=== PATIENT | female | born 1935 | race Caucasian/White ===

== ENCOUNTER 2017-11-15 09:33 | Emergency (ER) | payer MEDICARE, MEDICAID ==
[~2017-11-15] VITALS: Ht 149.9 cm; Wt 49.0 kg
[~2017-11-15 09:33] MED LIST: ACET-1467 PO; AMLO10TA2 PO; FENO48TA5 PO; FLUT1DIS27 PO; MELO-107 PO
--- NOTE | 2017-11-15 10:10 | NUR ---
Flu swab collected and sent to LAB.
[2017-11-15] MEDS ORDERED: ALBUTEROL SULFATE 2.5 MG/3 ML NEBU ONE (10:14)
[2017-11-15] MEDS ORDERED: IPRATROPIUM BROMIDE 0.5 MG/2.5 ML NEBU ONE (10:14)
[2017-11-15] MEDS ORDERED: ALBUTEROL SULFATE 2.5 MG/ 0.5 ML NEBU NEB ONE (10:15)
[2017-11-15] MEDS ORDERED: IPRATROPIUM BROMIDE 0.5 MG/2.5 ML NEBU NEB ONE (10:15)
[2017-11-15 10:21] LABS: BASOPHILS # (AUTO) 0.1 K/uL (0.0-8.0); BASOPHILS % (AUTO) 0.7 % (0.0-2.0); EOSINOPHILS # (AUTO) 0.1 K/uL (0.0-0.7); EOSINOPHILS % (AUTO) 1.7 % (0.0-7.0); HEMATOCRIT 39.1 % (31.2-41.9); HEMOGLOBIN 13.1 g/dL (10.9-14.3); LYMPHOCYTES # (AUTO) 2.1 K/uL (20.0-40.0); LYMPHOCYTES % (AUTO) 26.7 % (20.5-51.5); MEAN CORPUSCULAR HEMOGLOBIN 28.6 uug (24.7-32.8); MEAN CORPUSCULAR HGB CONC 33 g/dL (32.3-35.6); MEAN CORPUSCULAR VOLUME 85.9 fL (75.5-95.3); MONOCYTES # (AUTO) 0.5 K/uL (2.0-10.0); MONOCYTES % (AUTO) 6.9 % (0.0-11.0); NEUTROPHILS # (AUTO) 5.1 K/uL (1.8-8.9); PLATELET COUNT (AUTO) 323 K/uL (179-408); RED BLOOD CELL COUNT(AUTO) 4.56 MIL/uL (3.63-4.92); WHITE BLOOD COUNT (AUTO) 7.9 K/uL (3.8-11.8)
[2017-11-15 10:22] LABS: CARBON DIOXIDE 25 mmol/L (21-32); CHLORIDE 105 mmol/L (98-107); CREATININE 1.2 mg/dL (0.6-1.3); GLUCOSE 92 mg/dL (74-106); POTASSIUM 3.8 mmol/L (3.5-5.1); UREA NITROGEN, BLOOD 18 mg/dL (7-18)
[2017-11-15 10:28] LABS: ALANINE AMINOTRANSFERASE 28 U/L (14-59); ALKALINE PHOSPHATASE 72 U/L (50-136); ASPARTATE AMINOTRANSFERASE 20 U/L (15-37); BILIRUBIN,TOTAL 0.5 mg/dL (0.2-1.0); CREATINE KINASE, TOTAL 113 U/L (26-192); TOTAL PROTEIN, SERUM 7.3 g/dL (6.4-8.2)
[2017-11-15] MEDS ORDERED: IV NORMAL SALINE 500 ML IV ONE (10:45)
--- NOTE | 2017-11-15 10:45 | NUR ---
Pt resting in bed, no C/O SOB, pain. Son at the bedside.
[2017-11-15 12:23] VITALS: BP 129/72
--- NOTE | 2017-11-15 12:25 | NUR ---
Patient discharged to home in stable conditon. Written and verbal after care instructions given. Patient verbalizes understanding of instructions.
--- NOTE | 2017-11-15 12:25 | NUR ---
IV removed. Catheter intact and site benign. Pressure and 4x4 gauze applied to site. No bleeding noted.
== END 2017-11-15 12:25 | disposition home or self-care (01) ==
LOC: ER 09:33
DX: R53.1 Weakness (principal); R19.7 Diarrhea, unspecified; I10 Essential (primary) hypertension; I25.10 Atherosclerotic heart disease of native coronary artery without angina pectoris; Z88.0 Allergy status to penicillin; Z79.899 Other long term (current) drug therapy
CPT/HCPCS: 36415; 70030-TC; 85025; 85610; 87400; 93005; A4663; J3590; J7040

== ENCOUNTER 2017-11-20 09:42 | Emergency (ER) | payer MEDICARE, MEDICAID ==
[~2017-11-20] VITALS: Ht 149.9 cm; Wt 49.0 kg
[2017-11-20] MEDS ORDERED: ALBUTEROL SULFATE 2.5 MG/3 ML NEBU NEB ONE (10:15)
[2017-11-20] MEDS ORDERED: IPRATROPIUM BROMIDE 0.5 MG/2.5 ML NEBU NEB ONE (10:15)
--- NOTE | 2017-11-20 10:18 | NUR ---
Patient was seen by dr brasher for c/o cough and related symptoms. Flu swab sent to lab. RT at bedside for tx. patient is awake and alert in no distress.
[2017-11-20 10:46] LABS: BASOPHILS # (AUTO) 0.1 K/uL (0.0-8.0); BASOPHILS % (AUTO) 0.8 % (0.0-2.0); EOSINOPHILS # (AUTO) 0.1 K/uL (0.0-0.7); EOSINOPHILS % (AUTO) 1.4 % (0.0-7.0); HEMATOCRIT 37.1 % (31.2-41.9); HEMOGLOBIN 12.4 g/dL (10.9-14.3); LYMPHOCYTES # (AUTO) 2.6 K/uL (20.0-40.0); LYMPHOCYTES % (AUTO) 31.7 % (20.5-51.5); MEAN CORPUSCULAR HEMOGLOBIN 28.8 uug (24.7-32.8); MEAN CORPUSCULAR HGB CONC 33 g/dL (32.3-35.6); MEAN CORPUSCULAR VOLUME 86.3 fL (75.5-95.3); MONOCYTES # (AUTO) 0.6 K/uL (2.0-10.0); MONOCYTES % (AUTO) 7.6 % (0.0-11.0); NEUTROPHILS # (AUTO) 4.8 K/uL (1.8-8.9); NEUTROPHILS % (AUTO) 58.5 % (38.5-71.5); PLATELET COUNT (AUTO) 319 K/uL (179-408); WHITE BLOOD COUNT (AUTO) 8.2 K/uL (3.8-11.8)
--- NOTE | 2017-11-20 10:52 | NUR ---
DC, RX AND FOLLOW UP INSTRUCTIONS GIVEN AND EXPLAINED TO PATIENT WHO STATES SHE UNDERSTANDS ALL INSTRUCTIONS.
== END 2017-11-20 10:54 | disposition home or self-care (01) ==
LOC: ER 09:44
DX: J06.9 Acute upper respiratory infection, unspecified (principal); I10 Essential (primary) hypertension; I25.10 Atherosclerotic heart disease of native coronary artery without angina pectoris; Z88.0 Allergy status to penicillin; Z79.51 Long term (current) use of inhaled steroids; Z79.899 Other long term (current) drug therapy; Z79.891 Long term (current) use of opiate analgesic
CPT/HCPCS: 36415; 71045; 85025; 87400; A4663

== ENCOUNTER 2018-03-21 19:44 | Inpatient (IN) | payer MEDICARE, MEDICAID ==
[~2018-03-21] VITALS: Ht 165.1 cm; Wt 55.3 kg
--- NOTE | 2018-03-21 20:20 | NUR ---
CHAZ FUENTES at bedside for patient evaluation.
[2018-03-21] MEDS ORDERED: METOCLOPRAMIDE HCL 10 MG/2 ML VIAL ONE (20:44)
[2018-03-21] MEDS ORDERED: KETOROLAC TROMETHAMINE 15 MG INJ ONE (20:44)
[2018-03-21] MEDS ORDERED: IV NORMAL SALINE 1000 ML BAG IV ONE (20:45)
[2018-03-21] MEDS ORDERED: METOCLOPRAMIDE HCL 10 MG/2 ML VIAL IV ONE (20:45)
[2018-03-21] MEDS ORDERED: KETOROLAC TROMETHAMINE 15 MG INJ IV ONE (20:45)
--- NOTE | 2018-03-21 20:51 | NUR ---
Patient taken to CT at this time.
[2018-03-21 20:56] LABS: BASOPHILS # (AUTO) 0.1 K/uL (0.0-8.0); BASOPHILS % (AUTO) 0.4 % (0.0-2.0); EOSINOPHILS # (AUTO) 0.2 K/uL (0.0-0.7); EOSINOPHILS % (AUTO) 1.1 % (0.0-7.0); HEMATOCRIT 41.8 % (31.2-41.9); HEMOGLOBIN 13.8 g/dL (10.9-14.3); LYMPHOCYTES # (AUTO) 1.9 K/uL (20.0-40.0); LYMPHOCYTES % (AUTO) 12.4 % (20.5-51.5); MEAN CORPUSCULAR HEMOGLOBIN 29.2 uug (24.7-32.8); MEAN CORPUSCULAR HGB CONC 33 g/dL (32.3-35.6); MEAN CORPUSCULAR VOLUME 88.2 fL (75.5-95.3); NEUTROPHILS # (AUTO) 11.9 K/uL (1.8-8.9); NEUTROPHILS % (AUTO) 79.1 % (38.5-71.5); PLATELET COUNT (AUTO) 306 K/uL (179-408); RED BLOOD CELL COUNT(AUTO) 4.74 MIL/uL (3.63-4.92); WHITE BLOOD COUNT (AUTO) 15.1 K/uL (3.8-11.8)
--- NOTE | 2018-03-21 21:00 | NUR ---
Patient does not rember all Rx taking at home. Son will bring medication bottle as soon as possible to be reconciled
[2018-03-21 21:07] LABS: *BLOOD, URINE NEGATIVE (NEGATIVE); *CLARITY,URINE CLOUDY (CLEAR); *COLOR,URINE RED (YELLOW); *KETONES,URINE 1+ (NEGATIVE); *PROTEIN,URINE 2+ (NEGATIVE); LEUKOCYTE ESTERASE ,URINE NEGATIVE (NEGATIVE); NITRITE, URINE POSITIVE (NEGATIVE); UGLUCOSE TRACE (NEGATIVE)
--- NOTE | 2018-03-21 21:07 | NUR ---
Patient back from CT at this time. no acute distress noted. VSS
[2018-03-21 21:13] LABS: *BILIRUBIN,URIN 2+ (NEGATIVE)
[2018-03-21 21:16] LABS: CARBON DIOXIDE 26 mmol/L (21-32); CHLORIDE 103 mmol/L (98-107); CREATININE 1.9 mg/dL (0.6-1.3); GLUCOSE 140 mg/dL (74-106); POTASSIUM 4.6 mmol/L (3.5-5.1); UREA NITROGEN, BLOOD 47 mg/dL (7-18)
--- NOTE | 2018-03-21 21:24 | NUR ---
patient remains in bed, no acute distress noted. vss
[2018-03-21 21:30] LABS: ALANINE AMINOTRANSFERASE 33 U/L (14-59); ALKALINE PHOSPHATASE 97 U/L (50-136); ASPARTATE AMINOTRANSFERASE 23 U/L (15-37); BILIRUBIN,DIRECT 0.1 mg/dL (0.0-0.2); BILIRUBIN,TOTAL 0.6 mg/dL (0.2-1.0); LIPASE 497 U/L (73-393); TOTAL PROTEIN, SERUM 7.5 g/dL (6.4-8.2)
[2018-03-21 22:04] LABS: BACTERIA,URINE NONE SEEN /HPF (NONE SEEN); RBC,URINE 0-3 /HPF (0-3); SQUAMOUS EPITHELIAL CELL,UR FEW /HPF (NONE SEEN); WBC,URINE NONE SEEN /HPF (0-3)
[2018-03-21] MEDS ORDERED: ATOR10TA PO (22:40)
--- NOTE | 2018-03-21 22:41 | NUR ---
CHAZ MD on phone with [facility] at this time.
[2018-03-21] MEDS ORDERED: METRONIDAZOLE 500 MG/NS 100 ML PIGGYBACK IV ONE (22:45)
[2018-03-21] MEDS ORDERED: LEVOFLOXACIN 500 MG/D5W 100ML PIGGYBACK IV ONE (22:45)
[2018-03-21] MEDS ORDERED: LEVOFLOXACIN 500 MG/D5W 100 ML ONE (23:07)
[2018-03-21] MEDS ORDERED: ENAL20TA PO (23:16)
[2018-03-21] MEDS ORDERED: METRONIDAZOLE 500 MG/NS 100ML 100 ML IV ONE (23:40)
[2018-03-21] MEDS ORDERED: MORPHINE SULFATE 4 MG/1 ML DISP.SYRIN ONE (23:40)
[2018-03-21] MEDS ORDERED: MORPHINE SULFATE 4 MG/1 ML DISP.SYRIN IV ONE (23:45)
--- NOTE | 2018-03-22 00:02 | NUR ---
1st call to [facility] Panel call.
--- NOTE | 2018-03-22 00:32 | NUR ---
2nd attempt for [facility] panel call
--- NOTE | 2018-03-22 00:48 | NUR ---
Pt. admitted to Telemetry , under care of Yina Matamoros. Dx: Diverticulitis. Belongs List completed. Sons contact infromation: [phone]
--- NOTE | 2018-03-22 00:51 | NUR ---
Report given to Adair DEE on Telemetry
[2018-03-22] MEDS ORDERED: IV NS 1000 ML 1,000 ML IV PRN (00:53)
[2018-03-22] MEDS ORDERED: ONDANSETRON 4 MG/2 ML VIAL IV PRN (01:00)
[2018-03-22] MEDS ORDERED: ACETAMINOPHEN 325 MG TABLET PO PRN (01:00)
[2018-03-22] MEDS ORDERED: MORPHINE SULFATE 2 MG/1 ML DISP.SYRIN IV PRN ×2 (01:00→08:00)
--- NOTE | 2018-03-22 01:15 | NUR ---
RECEIVED PT REPORT FROM LUIZ YEUNG IN THE ER. PT ARRIVED ON FLOOR VIA W/C AT 0115. PT IS AMBULATORY. PT STABLE, NO COMPLAINTS AT THIS TIME. PT'S VSS 122/54, HR 82, RR 18, SPO2 97%, AFEBRILE 98.2. PT HAS AN IV ACCESS 20 G LEFT AC. PT IS NSR ON TELE MONITORING. ORIENTED TO USE OF CALL LIGHT AND UNIT. CALL LIGHT WITHIN USE, PT INSTRUCTED TO UTILIZE CALL LIGHT WHEN NEEDING TO GET OUT OF BED. PT VERBALIZES UNDERSTANDING.
[2018-03-22 01:37] VITALS: BP 122/54
[2018-03-22] MEDS ORDERED: METRONIDAZOLE 500 MG/NS 100ML 100 ML IV ONE (02:38)
[2018-03-22 04:19] VITALS: BP 118/49
--- NOTE | 2018-03-22 05:00 | NUR ---
PT SLEEPING IN BED. DENIES ANY PAIN, C/P, SOB, N/V. PT WAS ASSISTED TO THE RESTROOM AT 0400 BY ROSY MUÑOZ. PT IS NSR ON TELE MONITORING. WILL CONTINUE TO MONITOR. CALL LIGHT WITHIN REACH.
[2018-03-22] MEDS: METRONIDAZOLE 500 MG/NS 100ML 500 MG in PREMIXED 1 EACH IV SCH ×3 (05:36→22:02)
--- NOTE | 2018-03-22 06:33 | NUR ---
PT IS AWAKE, RESTING IN BED. NSR ON TELE MONITORING. PT DENIES PAIN, C/P, SOB, N/V. PT IS TOLERATING IVF WELL. BED IN LOW & LOCKED POSITION WITH SIDERAILS X2 UP. CALL LIGHT WITHIN REACH. SCDS IN PLACE.
[2018-03-22 06:52] LABS: MAGNESIUM 2.1 mg/dL (1.8-2.4); PHOSPHOROUS 3.9 mg/dL (2.5-4.9)
[2018-03-22 07:03] LABS: THYROID STIMULATING HORMONE 2.854 mIU/mL (0.358-3.740)
--- NOTE | 2018-03-22 08:10 | NUR ---
AWAKE ALERT AND ORIENTED X3 NO SIGNS OF DISTRESS BUT BEARABLE ABDOMINAL PAIN /, KEPT NPO TILL FURTHER ORDERS. IVF AT 75 ML/HR
[2018-03-22] MEDS: PANTOPRAZOLE SODIUM 40 MG VIAL IV SCH (08:45)
[2018-03-22] MEDS ORDERED: LEVOFLOXACIN 500 MG/D5W 100ML PIGGYBACK IV ONE (09:00)
[2018-03-22 11:29] VITALS: BP 115/77
[2018-03-22] MEDS ORDERED: ATOR20TA PO (11:38)
[2018-03-22] MEDS ORDERED: ACETAMINOPHEN 650 MG SUPP.RECT RC PRN (11:45)
--- NOTE | 2018-03-22 11:45 | NUR ---
AWAITING MD FOR PLAN OF CARE. TO XRAY FOR CT CHEST VIA W/C. REMAINS NPO, NO N/V
[2018-03-22 12:10] LABS: *BILIRUBIN,URIN NEGATIVE (NEGATIVE); *BLOOD, URINE Trace-lysed (NEGATIVE); *CLARITY,URINE CLEAR (CLEAR); *COLOR,URINE YELLOW (YELLOW); *KETONES,URINE NEGATIVE (NEGATIVE); *PROTEIN,URINE NEGATIVE (NEGATIVE); *UROBILINOGEN,URINE 0.2 E.U./dl (NORMAL); LEUKOCYTE ESTERASE ,URINE 1+ (NEGATIVE); NITRITE, URINE NEGATIVE (NEGATIVE); UGLUCOSE NEGATIVE (NEGATIVE)
[2018-03-22 12:17] LABS: *CREATININE,URINE 115.9 mg/dL (30-125); *URINE TOTAL PROTEIN RANDOM 20.9 mg/dL (<150/24HR)
[2018-03-22 12:23] LABS: BACTERIA,URINE FEW /HPF (NONE SEEN); RBC,URINE 0-3 /HPF (0-3); SQUAMOUS EPITHELIAL CELL,UR FEW /HPF (NONE SEEN); WBC,URINE 0-3 /HPF (0-3)
[2018-03-22] MEDS: IV D5 1/2 NS 1000 ML 1,000 ML IV PRN (12:24)
--- NOTE | 2018-03-22 14:40 | NUR ---
SEEN BY DR CRUZ AND SPOKE WITH FAMILY REGARDING PLAN O CARE, SEE NOTES
[2018-03-22 15:24] VITALS: BP 112/42
--- NOTE | 2018-03-22 18:59 | NUR ---
CONTINUE NPO STATUS AND IV ANTIBIOTICS, NO REACTION NOTED
[2018-03-22 19:00] VITALS: BP 115/43
--- NOTE | 2018-03-22 19:20 | NUR ---
RECEIVED SHIFT REPORT FROM LUIZ MI. PT IN BED RESTING WITH NO COMPLAINTS AT THIS TIME. PT IS NPO WITH IVF D5 1/2 NS INFUSING AT 70 CC/HR. CALL LIGHT WITHIN REACH WITH BED IN LOCKED, LOW POSITION WITH SIDERAILS X2 UP.
[2018-03-22] MEDS: LEVOFLOXACIN/D5W 250 MG in PREMIX 1 EA IV SCH (20:20)
[2018-03-22] MEDS ORDERED: LEVOFLOXACIN 500 MG/D5W 500 MG in PREMIXED 1 EACH IV SCH (21:00)
[2018-03-23 04:00] VITALS: BP 124/44
[2018-03-23] MEDS: MORPHINE SULFATE 2 MG/1 ML DISP.SYRIN IV PRN ×2 (04:26→21:27)
[2018-03-23] MEDS: IV D5 1/2 NS 1000 ML 1,000 ML IV PRN ×2 (04:26→20:09)
[2018-03-23] MEDS: METRONIDAZOLE 500 MG/NS 100ML 500 MG in PREMIXED 1 EACH IV SCH ×3 (05:25→21:10)
[2018-03-23 06:09] LABS: BASOPHILS % (AUTO) 0.3 % (0.0-2.0); EOSINOPHILS # (AUTO) 0.1 K/uL (0.0-0.7); EOSINOPHILS % (AUTO) 1.1 % (0.0-7.0); HEMATOCRIT 30.1 % (31.2-41.9); HEMOGLOBIN 10.1 g/dL (10.9-14.3); LYMPHOCYTES # (AUTO) 1.8 K/uL (20.0-40.0); LYMPHOCYTES % (AUTO) 25.2 % (20.5-51.5); MEAN CORPUSCULAR HEMOGLOBIN 29.7 uug (24.7-32.8); MEAN CORPUSCULAR HGB CONC 34 g/dL (32.3-35.6); MONOCYTES # (AUTO) 0.5 K/uL (2.0-10.0); MONOCYTES % (AUTO) 7.3 % (0.0-11.0); NEUTROPHILS # (AUTO) 4.7 K/uL (1.8-8.9); NEUTROPHILS % (AUTO) 66.1 % (38.5-71.5); PLATELET COUNT (AUTO) 183 K/uL (179-408); RED BLOOD CELL COUNT(AUTO) 3.42 MIL/uL (3.63-4.92); WHITE BLOOD COUNT (AUTO) 7.2 K/uL (3.8-11.8)
[2018-03-23 06:46] LABS: ALANINE AMINOTRANSFERASE 17 U/L (14-59); ALKALINE PHOSPHATASE 62 U/L (50-136); ASPARTATE AMINOTRANSFERASE 16 U/L (15-37); BILIRUBIN,TOTAL 0.8 mg/dL (0.2-1.0); CARBON DIOXIDE 25 mmol/L (21-32); CHLORIDE 108 mmol/L (98-107); CHOLESTEROL 146 mg/dL (<200); CREATININE 1.4 mg/dL (0.6-1.3); GLUCOSE 107 mg/dL (74-106); HDL CHOLESTEROL 54 mg/dL (40-60); PHOSPHOROUS 3.5 mg/dL (2.5-4.9); POTASSIUM 4.5 mmol/L (3.5-5.1); TOTAL PROTEIN, SERUM 5.5 g/dL (6.4-8.2); TRIGLYCERIDES 97 MG/DL (30-150); UREA NITROGEN, BLOOD 28 mg/dL (7-18)
[2018-03-23 07:01] LABS: LIPASE 229 U/L (73-393)
--- NOTE | 2018-03-23 08:00 | NUR ---
AWAKE ALERT RESTING IN BED WITH ON AND OFF BEARABLE ABDOMINAL PAIN. AWAITING MD TO DISCUSS FURTHER PLAN OF CARE. KEPT NPO TILL FURTHER ORDERS
[2018-03-23] MEDS: NICOTINE 21 MG/24HR PATCH TD SCH (08:35)
[2018-03-23] MEDS: PANTOPRAZOLE SODIUM 40 MG VIAL IV SCH (08:35)
[2018-03-23 11:09] VITALS: BP 122/40
--- NOTE | 2018-03-23 12:00 | NUR ---
SEEN BY GI WITH ORDER FOR EGD AND COLONOSCOPY IN AM, SPOKE WITH PATIENT AND DAUGHTER. CONSENT TO BE SIGNED BY DAUGHTER
[2018-03-23] MEDS ORDERED: ALBUTEROL SULFATE 2.5 MG/3 ML NEBU NEB PRN (12:15)
[2018-03-23 15:31] VITALS: BP 127/43
--- NOTE | 2018-03-23 16:04 | NUR ---
RESTING COMFORTABLY WITH SIGNS OF ACUTE PAIN. CONTINUE TO BE UP AND ABOUT INDEPENDENTLY TO THE BATHROOM. NOTED STOOL WITH SMALL PARTICLES OF FORMED BROWN STOOL
--- NOTE | 2018-03-23 19:35 | NUR ---
Received patient awake, alert, no sob no chest patient noted, patient cont on npo, cont to monitor if BM clean. call light within reach. cont to monitor.
[2018-03-23 20:00] VITALS: BP 124/40
[2018-03-23] MEDS: LEVOFLOXACIN/D5W 250 MG in PREMIX 1 EA IV SCH (20:09)
[2018-03-24] MEDS: MORPHINE SULFATE 2 MG/1 ML DISP.SYRIN IV PRN ×2 (01:41→10:56)
[2018-03-24 04:18] VITALS: BP 126/46
[2018-03-24] MEDS: METRONIDAZOLE 500 MG/NS 100ML 500 MG in PREMIXED 1 EACH IV SCH (05:40)
--- NOTE | 2018-03-24 05:58 | NUR ---
PATIENT AWAKE SLEPT FAIRLY, CONT ON PAIN MANAGEMENT. CONT NPO. FLEETS ENEMA GIVEN BM CLEAR WATER COLOR, CONT TO REMIND PATIENT THAT SHE IS NPO. NO SOB NO CHEST PAIN NOTED, CALL LIGHT WITHIN REACH.
[2018-03-24] MEDS ORDERED: FLEET ENEMA 133 ML BOTTLE RC SCH (06:30)
--- NOTE | 2018-03-24 07:46 | NUR ---
patient went for egd/colonoscopy at this time. stable condition, no s/s of distress. iv disconnected. alert/oriented. consent signed for surgery, pre-op checklist completed per power and recovery shift engineer nurse.
[2018-03-24] MEDS: PANTOPRAZOLE SODIUM 40 MG VIAL IV SCH ×2 (07:59→11:29)
--- NOTE | 2018-03-24 07:59 | NUR ---
non-administration medication: protonix 40mg iv - patient left for procedure at 0742.
[2018-03-24] MEDS ORDERED: PROPOFOL 200 MG/20 ML BOTTLE ONE (09:35)
[2018-03-24] MEDS ORDERED: LIDOCAINE HCL 2% 20 ML VIAL MC ONE (09:50)
[2018-03-24] MEDS ORDERED: PROPOFOL 200 MG/20 ML BOTTLE IV ONE (09:50)
[2018-03-24] MEDS ORDERED: IV NORMAL SALINE 1000 ML BAG IV ONE (09:50)
[2018-03-24] MEDS ORDERED: SIMETHICONE 40 MG/0.6 ML 30 ML BOTTLE MC ONE (09:50)
--- NOTE | 2018-03-24 10:50 | NUR ---
Patient arrived onto med-surg floor at this time from procedure. vital signs taken and all vitals WNL except for diastolic BP of 38. MD notified. complained of abdominal pain 06/08. Asked MD if OK to administer morphine 2mg IV if diastolic BP is low. MD said it's okay. but also ordered to increase IVF to 90 cc/hr.
[2018-03-24 10:53] VITALS: BP 116/38
[2018-03-24] MEDS: NICOTINE 21 MG/24HR PATCH TD SCH (11:12)
[2018-03-24] MEDS: METRONIDAZOLE 500 MG TABLET PO SCH ×2 (13:12→22:30)
[2018-03-24 13:33] LABS: BASOPHILS % (AUTO) 0.2 % (0.0-2.0); EOSINOPHILS % (AUTO) 0.3 % (0.0-7.0); HEMOGLOBIN 10.6 g/dL (10.9-14.3); LYMPHOCYTES # (AUTO) 1.3 K/uL (20.0-40.0); LYMPHOCYTES % (AUTO) 12.9 % (20.5-51.5); MEAN CORPUSCULAR HEMOGLOBIN 29.5 uug (24.7-32.8); MEAN CORPUSCULAR HGB CONC 33 g/dL (32.3-35.6); MEAN CORPUSCULAR VOLUME 88.9 fL (75.5-95.3); MONOCYTES # (AUTO) 0.5 K/uL (2.0-10.0); MONOCYTES % (AUTO) 4.7 % (0.0-11.0); NEUTROPHILS # (AUTO) 7.9 K/uL (1.8-8.9); NEUTROPHILS % (AUTO) 81.9 % (38.5-71.5); PLATELET COUNT (AUTO) 201 K/uL (179-408); WHITE BLOOD COUNT (AUTO) 9.7 K/uL (3.8-11.8)
[2018-03-24 13:38] LABS: CARBON DIOXIDE 21 mmol/L (21-32); CHLORIDE 108 mmol/L (98-107); CREATININE 1.3 mg/dL (0.6-1.3); GLUCOSE 158 mg/dL (74-106); POTASSIUM 3.4 mmol/L (3.5-5.1); UREA NITROGEN, BLOOD 17 mg/dL (7-18)
[2018-03-24 15:45] VITALS: BP 125/48
[2018-03-24] MEDS: IV D5 1/2 NS 1000 ML 1,000 ML IV PRN (16:30)
[2018-03-24] MEDS ORDERED: POTASSIUM CHLORIDE 20 MEQ TAB.PRT.SR PO ONE (18:00)
--- NOTE | 2018-03-24 19:45 | NUR ---
RECEIVED PATIENT IN BED, ASLEEP, NO SOB NO CHEST PAIN NOTED, NO COMPLAIN OF PAIN AT THIS TIME. ASSISTED WITH TOILETING, CALL LIGHT WITHIN REACH.
[2018-03-24 20:37] VITALS: BP 113/47
[2018-03-24] MEDS ORDERED: LEVOFLOXACIN 250 MG TABLET PO SCH (21:00)
[2018-03-25] MEDS: MORPHINE SULFATE 2 MG/1 ML DISP.SYRIN IV PRN (01:26)
--- NOTE | 2018-03-25 01:26 | NUR ---
PATIENT REQUEST FOR PAIN MEDICATIONS, PATIENT RESTLESS, DANGLE FEET FROM THE BED DUE TO SEVERE PAIN, MEDICATED FOR PAIN, NO ADVERSE REACTION NOTED. CONT TO MONITOR.
[2018-03-25 04:00] VITALS: BP 128/48
--- NOTE | 2018-03-25 05:30 | NUR ---
PATIENT MOST OF THE NIGHT, PAIN MEDICATION EFFECTIVE AT THIS TIME, NO SOB NO CHEST PAIN, CALL LIGHT WITHIN REACH, VOIDING FREELY CONTINUE TO MONITOR.
[2018-03-25] MEDS: METRONIDAZOLE 500 MG TABLET PO SCH (06:12)
[2018-03-25] MEDS ORDERED: PANTOPRAZOLE SODIUM 40 MG TABLET.DR PO SCH (07:00)
[2018-03-25 07:12] LABS: BASOPHILS % (AUTO) 0.3 % (0.0-2.0); EOSINOPHILS # (AUTO) 0.1 K/uL (0.0-0.7); EOSINOPHILS % (AUTO) 1.2 % (0.0-7.0); HEMATOCRIT 28.9 % (31.2-41.9); HEMOGLOBIN 9.8 g/dL (10.9-14.3); LYMPHOCYTES % (AUTO) 24.7 % (20.5-51.5); MEAN CORPUSCULAR HGB CONC 34 g/dL (32.3-35.6); MEAN CORPUSCULAR VOLUME 88.3 fL (75.5-95.3); MONOCYTES # (AUTO) 0.7 K/uL (2.0-10.0); MONOCYTES % (AUTO) 8.5 % (0.0-11.0); NEUTROPHILS # (AUTO) 5.3 K/uL (1.8-8.9); NEUTROPHILS % (AUTO) 65.3 % (38.5-71.5); PLATELET COUNT (AUTO) 195 K/uL (179-408); RED BLOOD CELL COUNT(AUTO) 3.27 MIL/uL (3.63-4.92); WHITE BLOOD COUNT (AUTO) 8.2 K/uL (3.8-11.8)
[2018-03-25 07:29] LABS: ALANINE AMINOTRANSFERASE 19 U/L (14-59); ALKALINE PHOSPHATASE 56 U/L (50-136); ASPARTATE AMINOTRANSFERASE 15 U/L (15-37); BILIRUBIN,TOTAL 0.5 mg/dL (0.2-1.0); CARBON DIOXIDE 21 mmol/L (21-32); CHLORIDE 113 mmol/L (98-107); CREATININE 1.3 mg/dL (0.6-1.3); GLUCOSE 94 mg/dL (74-106); MAGNESIUM 1.5 mg/dL (1.8-2.4); POTASSIUM 3.9 mmol/L (3.5-5.1); TOTAL PROTEIN, SERUM 5.2 g/dL (6.4-8.2); UREA NITROGEN, BLOOD 14 mg/dL (7-18)
--- NOTE | 2018-03-25 07:41 | NUR ---
patient resting comfortably in bed at this time. no s/s of distress. stable condition, possible d/c today. no complaints of pain at this time. will continue to monitor throughout shift. call light within reach. bed alarm on.
[2018-03-25] MEDS: NICOTINE 21 MG/24HR PATCH TD SCH (08:26)
[2018-03-25] MEDS ORDERED: MAGNESIUM OXIDE 400 MG TABLET PO ONE (09:30)
[2018-03-25 11:27] VITALS: BP 123/41
[2018-03-25] MEDS ORDERED: ATOR10TA PO (11:27)
[2018-03-25] MEDS ORDERED: NICO-672 TD (11:27)
[2018-03-25] MEDS ORDERED: AMLO5TAB4 PO (11:27)
[2018-03-25] MEDS ORDERED: METR500T4 PO (11:27)
[2018-03-25] MEDS ORDERED: LEVO250T2 PO (11:27)
[2018-03-25] MEDS ORDERED: PANT40TA2 PO (11:27)
--- NOTE | 2018-03-25 13:20 | NUR ---
patient discharged at this time. no s/s of distress. stable condition. vital signs stable. discharge instructions provided. notified patient and patient's family to follow-up with primary care physician within one-week of being discharged. id-band taken out, iv-access disconnected, prescriptions provided to patient. pharmacist called to speak with patient regarding new medications. discharge packet completed, signed by patient and copy made for patient. patient picked up by son, daughter, and and discharged safely from hospital premises.
== END 2018-03-25 13:20 | disposition home or self-care (01) | DRG 371 ==
LOC: ER 19:50 → TELE 03-22 00:45 → MED 03-22 11:55
PROVIDERS: ADMIT Nurse Practitioner Acute Care; ATTEND Internal Medicine
PROC: 0DBH8ZX Excision of Cecum, Via Natural or Artificial Opening Endoscopic, Diagnostic (ICD-10-PCS; 2018-03-24)
PROC: 0DB48ZX Excision of Esophagogastric Junction, Via Natural or Artificial Opening Endoscopic, Diagnostic (ICD-10-PCS; principal; 2018-03-24 08:30)
PROC: 0DBN8ZX Excision of Sigmoid Colon, Via Natural or Artificial Opening Endoscopic, Diagnostic (ICD-10-PCS; 2018-03-24 08:30)
DX: A04.9 Bacterial intestinal infection, unspecified (principal); N17.0 Acute kidney failure with tubular necrosis; K85.90 Acute pancreatitis without necrosis or infection, unspecified; K57.32 Diverticulitis of large intestine without perforation or abscess without bleeding; R01.1 Cardiac murmur, unspecified; I08.3 Combined rheumatic disorders of mitral, aortic and tricuspid valves; E78.5 Hyperlipidemia, unspecified; F17.210 Nicotine dependence, cigarettes, uncomplicated; Z90.722 Acquired absence of ovaries, bilateral; Z88.0 Allergy status to penicillin; M85.80 Other specified disorders of bone density and structure, unspecified site; H54.62 Unqualified visual loss, left eye, normal vision right eye; K80.20 Calculus of gallbladder without cholecystitis without obstruction; J43.2 Centrilobular emphysema; M41.9 Scoliosis, unspecified; I10 Essential (primary) hypertension; G89.29 Other chronic pain; M15.9 Polyosteoarthritis, unspecified; K86.9 Disease of pancreas, unspecified; Z79.899 Other long term (current) drug therapy; K63.5 Polyp of colon; I27.20 Pulmonary hypertension, unspecified; E27.8 Other specified disorders of adrenal gland; D64.9 Anemia, unspecified; R91.8 Other nonspecific abnormal finding of lung field; R73.9 Hyperglycemia, unspecified; K20.9 Esophagitis, unspecified; K44.9 Diaphragmatic hernia without obstruction or gangrene; D12.0 Benign neoplasm of cecum; I25.10 Atherosclerotic heart disease of native coronary artery without angina pectoris
CPT/HCPCS: 36415; 70030-TC; 71045; 71250; 82378; 83605; 83690; 83735; 84100; 84156; 84300; 84443; 85025; 85730; 86301; 87040; 87086; 93005; 93307; A4217; A4663; C9113; J1885; J1956; J2270; J2765; J3490; J7030

== ENCOUNTER 2018-03-30 13:45 | Inpatient (IN) | payer MEDICARE, MEDICAID ==
[~2018-03-30] VITALS: Ht 157.5 cm; Wt 50.8 kg
[~2018-03-30 13:45] MED LIST changes: -AMLO10TA2 PO; +AMLO5TAB4 PO; +ATOR10TA PO; -FENO48TA5 PO; +LEVO250T2 PO; -MELO-107 PO; +METR500T4 PO; +NICO-672 TD; +PANT40TA2 PO
[2018-03-30] MEDS ORDERED: ALBUTEROL SULFATE 2.5 MG/3 ML NEBU NEB ONE (14:15)
[2018-03-30] MEDS ORDERED: ALBUTEROL SULFATE 2.5 MG/ 0.5 ML NEBU ONE (14:15)
[2018-03-30] MEDS ORDERED: predniSONE 10 MG TABLET PO ONE (14:15)
[2018-03-30] MEDS ORDERED: IPRATROPIUM BROMIDE 0.5 MG/2.5 ML NEBU ONE (14:15)
[2018-03-30] MEDS ORDERED: IPRATROPIUM BROMIDE 0.5 MG/2.5 ML NEBU NEB ONE (14:15)
[2018-03-30] MEDS ORDERED: predniSONE 50 MG TABLET ONE (14:20)
[2018-03-30] MEDS ORDERED: predniSONE 10 MG TABLET ONE (14:20)
[2018-03-30] MEDS ORDERED: ALBU18HF2 IH (14:27)
--- NOTE | 2018-03-30 14:32 | NUR ---
HHN TX completed, lungs sounds clear bilat, no acute distress noted at this time.
--- NOTE | 2018-03-30 14:34 | NUR ---
DR SCOTT EVALUATED THE PT. PT IS IN ROOM #1A.
[2018-03-30 14:39] LABS: BASOPHILS % (AUTO) 0.5 % (0.0-2.0); EOSINOPHILS # (AUTO) 0.1 K/uL (0.0-0.7); EOSINOPHILS % (AUTO) 1.3 % (0.0-7.0); HEMATOCRIT 31.7 % (31.2-41.9); HEMOGLOBIN 10.6 g/dL (10.9-14.3); LYMPHOCYTES # (AUTO) 1.8 K/uL (20.0-40.0); LYMPHOCYTES % (AUTO) 21.3 % (20.5-51.5); MEAN CORPUSCULAR HEMOGLOBIN 29.2 uug (24.7-32.8); MEAN CORPUSCULAR HGB CONC 34 g/dL (32.3-35.6); MEAN CORPUSCULAR VOLUME 87.3 fL (75.5-95.3); MONOCYTES # (AUTO) 0.9 K/uL (2.0-10.0); MONOCYTES % (AUTO) 10.8 % (0.0-11.0); NEUTROPHILS # (AUTO) 5.5 K/uL (1.8-8.9); NEUTROPHILS % (AUTO) 66.1 % (38.5-71.5); PLATELET COUNT (AUTO) 238 K/uL (179-408); RED BLOOD CELL COUNT(AUTO) 3.62 MIL/uL (3.63-4.92); WHITE BLOOD COUNT (AUTO) 8.4 K/uL (3.8-11.8)
[2018-03-30 14:48] LABS: CARBON DIOXIDE 25 mmol/L (21-32); CHLORIDE 103 mmol/L (98-107); CREATININE 1.4 mg/dL (0.6-1.3); GLUCOSE 133 mg/dL (74-106); POTASSIUM 3.4 mmol/L (3.5-5.1); UREA NITROGEN, BLOOD 13 mg/dL (7-18)
[2018-03-30] MEDS ORDERED: ONDANSETRON 4 MG/2 ML VIAL IV PRN (15:30)
[2018-03-30] MEDS ORDERED: HYDROCODONE/APAP 5-325MG TABLET PO PRN (15:30)
[2018-03-30] MEDS ORDERED: IPRATROPIUM BROMIDE 0.5 MG/2.5 ML NEBU NEB PRN (15:30)
[2018-03-30] MEDS ORDERED: Z GUARD REMEDY PASTE 57 GM TUBE TOP PRN (15:30)
[2018-03-30] MEDS ORDERED: MAGNESIUM HYDROXIDE 30 ML LIQUID UDC PO PRN (15:30)
[2018-03-30] MEDS ORDERED: ALBUTEROL SULFATE 2.5 MG/ 0.5 ML NEBU NEB PRN (15:30)
[2018-03-30] MEDS ORDERED: FLUTICASONE/SALMETEROL 100/50 1 INH DISK.W.DEV INH SCH (15:45)
--- NOTE | 2018-03-30 17:00 | NUR ---
Received pt via pita accompanied by ER nurse.
[2018-03-30 17:10] VITALS: BP 146/58
--- NOTE | 2018-03-30 17:13 | NUR ---
PT WAS TRANSFERED TO ROOM #215. REPORT WAS GIVEN TO PERINATAL SOCIAL WORKER.
[2018-03-30] MEDS: ACETAMINOPHEN 325 MG TABLET PO PRN (17:24)
--- NOTE | 2018-03-30 17:35 | NUR ---
Pt's VS taken and noted temp at 100.1, Tylenol given. Pt is noted with a productive cough. O2 via NC at 3L and sating at 96%. Ice packs provided under each arm. Placed pt on tele monitor. Family members accompanied her, noted 3 young men with her. Pt refused to remove her pants by states her legs are clean and no skin issues. Also noted she is wearing 2 cloth knee braces. Pt stated she is tried and will remove her trouser later and replace them with hospital pants. Noted pt with no skin issues on her back, arms and chest/abdomen. Noted posterior wheezes
[2018-03-30] MEDS: AZITHROMYCIN IV 250 MG in IV DEXTROSE 5% 250 ML IV SCH (17:51)
--- NOTE | 2018-03-30 19:20 | NUR ---
Pt requested something to help her sleep. Informed HORIZONTAL DRILL OPERATOR and asked night baker nurse to follow up. Pt is resting at this time, sleeping upright in a high sanchez position
--- NOTE | 2018-03-30 19:20 | NUR ---
RECEIVED SHIFT REPORT FROM LUIZ SARGENT. PT IN BED SITTING HIGH MANTILLA'S, COMPLAINING OF BACK PAIN 04/08 CURRENTLY. NO SOB, C/P, N/V. BED IN LOW AND LOCKED POSITION WITH BILATERAL UPPER SIDERAILS UP. PT IS NSR ON TELE MONITORING. SKIN INTACT. WILL FOLLOW UP WITH CLINICAL NURSE EDUCATOR RE PT'S REQUEST FOR MEDICATION TO HELP HER SLEEP.
[2018-03-30 20:00] VITALS: BP 131/51
[2018-03-30] MEDS: ATORVASTATIN 10 MG TABLET PO SCH (20:41)
--- NOTE | 2018-03-30 23:40 | NUR ---
PT HAS NONPRODUCTIVE COUGH, C/O SOB. RR 18 WITH BREATHING COACHING, SPO2 97% ON O2 3 LPM VIA N/C. REQUESTED RT TO ADMINISTER BREATHING TREATMENT.
[2018-03-30 23:55] VITALS: BP 138/58
--- NOTE | 2018-03-31 01:34 | NUR ---
PT SLEEPING COMFORTABLY POST BREATHING TREATMENT. NNO FOR SLEEPING AID, BUT PT SLEEPING COMFORTABLY. PT REFUSED PAIN MEDICATION. WILL CONTINUE TO MONITOR.
[2018-03-31] MEDS: ACETAMINOPHEN/CODEINE 300-30 MG TABLET PO PRN ×2 (03:02→18:30)
[2018-03-31 04:00] VITALS: BP 134/52
[2018-03-31] MEDS: PANTOPRAZOLE SODIUM 40 MG TABLET.DR PO SCH (06:06)
[2018-03-31 06:36] LABS: BASOPHILS % (AUTO) 0.2 % (0.0-2.0); HEMATOCRIT 29.1 % (31.2-41.9); HEMOGLOBIN 9.9 g/dL (10.9-14.3); LYMPHOCYTES # (AUTO) 0.5 K/uL (20.0-40.0); LYMPHOCYTES % (AUTO) 8.4 % (20.5-51.5); MEAN CORPUSCULAR HEMOGLOBIN 29.7 uug (24.7-32.8); MEAN CORPUSCULAR HGB CONC 34 g/dL (32.3-35.6); MONOCYTES # (AUTO) 0.4 K/uL (2.0-10.0); MONOCYTES % (AUTO) 6.9 % (0.0-11.0); NEUTROPHILS # (AUTO) 5.2 K/uL (1.8-8.9); NEUTROPHILS % (AUTO) 84.5 % (38.5-71.5); PLATELET COUNT (AUTO) 230 K/uL (179-408); RED BLOOD CELL COUNT(AUTO) 3.34 MIL/uL (3.63-4.92); WHITE BLOOD COUNT (AUTO) 6.1 K/uL (3.8-11.8)
[2018-03-31 06:42] LABS: CARBON DIOXIDE 27 mmol/L (21-32); CHLORIDE 106 mmol/L (98-107); CHOLESTEROL 135 mg/dL (<200); CREATININE 1.3 mg/dL (0.6-1.3); GLUCOSE 127 mg/dL (74-106); HDL CHOLESTEROL 68 mg/dL (40-60); MAGNESIUM 1.9 mg/dL (1.8-2.4); PHOSPHOROUS 3.9 mg/dL (2.5-4.9); POTASSIUM 3.8 mmol/L (3.5-5.1); TRIGLYCERIDES 36 MG/DL (30-150); UREA NITROGEN, BLOOD 16 mg/dL (7-18)
[2018-03-31 06:58] LABS: *BILIRUBIN,URIN NEGATIVE (NEGATIVE); *BLOOD, URINE Trace-lysed (NEGATIVE); *CLARITY,URINE CLEAR (CLEAR); *COLOR,URINE YELLOW (YELLOW); *KETONES,URINE NEGATIVE (NEGATIVE); *PROTEIN,URINE 1+ (NEGATIVE); *UROBILINOGEN,URINE 0.2 E.U./dl (NORMAL); LEUKOCYTE ESTERASE ,URINE NEGATIVE (NEGATIVE); NITRITE, URINE NEGATIVE (NEGATIVE); PH,URINE 5.5 (5.0-8.0); UGLUCOSE NEGATIVE (NEGATIVE)
[2018-03-31 07:03] LABS: THYROID STIMULATING HORMONE 0.468 mIU/mL (0.358-3.740)
[2018-03-31 07:04] LABS: BACTERIA,URINE FEW /HPF (NONE SEEN); RBC,URINE 0-3 /HPF (0-3); SQUAMOUS EPITHELIAL CELL,UR FEW /HPF (NONE SEEN)
--- NOTE | 2018-03-31 08:00 | NUR ---
AWAKE ALERT AND VERBALLY RESPONSIVE WITH O2 AT 3L NC SATURATING 94%. NOTED WITH SOB ON EXERTION CLOSELY MONITORED. ROUTINE MEDS GIVEN
[2018-03-31] MEDS: AMLODIPINE 5 MG TABLET PO SCH (08:13)
[2018-03-31] MEDS: FLUTICASONE/VILANTEROL 1 EACH BLST.W.DEV INH SCH (08:15)
[2018-03-31] MEDS ORDERED: predniSONE 20 MG TABLET PO SCH (09:00)
[2018-03-31] MEDS: ACETAMINOPHEN 325 MG TABLET PO PRN (10:49)
[2018-03-31 11:06] VITALS: BP 140/55
--- NOTE | 2018-03-31 12:00 | NUR ---
SEEN BY PT AND OT SEE NOTES
[2018-03-31] MEDS: GUAIFENESIN/DEXTROMETHORPHAN 5 ML UDC PO PRN (13:43)
[2018-03-31] MEDS: predniSONE 20 MG TABLET PO SCH ×2 (13:44→21:10)
[2018-03-31] MEDS ORDERED: LEVALBUTEROL HCL NEB 0.63 MG/3 ML NEBU NEB PRN (14:00)
[2018-03-31] MEDS ORDERED: BUDE10.22 IH (14:05)
[2018-03-31] MEDS ORDERED: ENAL20TA PO (14:06)
[2018-03-31] MEDS ORDERED: FENO54TA PO (14:10)
[2018-03-31] MEDS ORDERED: ALBUTEROL SULFATE 2.5 MG/ 0.5 ML NEBU NEB PRN (14:45)
[2018-03-31 15:10] VITALS: BP 131/45
--- NOTE | 2018-03-31 15:30 | NUR ---
SEEN BY HOSPITALIST SEE NOTES
[2018-03-31] MEDS: AZITHROMYCIN IV 250 MG in IV DEXTROSE 5% 250 ML IV SCH (17:01)
--- NOTE | 2018-03-31 17:45 | NUR ---
PATIENT STILL WITH ON AND OFF SOB AND COUGHING, O3 AT 3L NC SATURATING 93-95%. CONTINUE WITH IV ANTIBIOTIC AND PREDNISONE. PRN MEDS FOR COUGH WITH TEMPORARY RELIEF. SR ON MONITOR
--- NOTE | 2018-03-31 19:26 | NUR ---
RECEIVED SHIFT REPORT FROM LUIZ MI. PT RESTING IN BED. PT C/O SOB CURRENTLY, ON O2 3 LPM VIA N/C, SPO2 96%. SON IS AT BEDSIDE. PT DENIES PAIN, C/P, N/V. BED IN LOW AND LOCKED POSITION WITH BILATERAL UPPER SIDERAILS UP. AWAITING FOR RT TO ADMIN BREATHING TREATMENT.
[2018-03-31] MEDS: ALBUTEROL SULFATE 2.5 MG/3 ML NEBU NEB SCH (19:33)
[2018-03-31] MEDS: IPRATROPIUM BROMIDE 0.5 MG/2.5 ML NEBU NEB SCH (19:33)
[2018-03-31 20:00] VITALS: BP 135/84
[2018-03-31] MEDS: ATORVASTATIN 10 MG TABLET PO SCH (21:10)
[2018-04-01] VITALS: BP 128/49
--- NOTE | 2018-04-01 | NUR ---
PT SLEEPING INTERMITTENTLY. C/O SOB. PT IS ON O2 3 LPM VIA N/C. BREATHING TREATMENT WAS ADMIN BY RT AND WELL TOLERATED. PT SINUS TACHY ON TELE MONITORING. CALL LIGHT WITHIN REACH.
[2018-04-01] MEDS: ACETAMINOPHEN/CODEINE 300-30 MG TABLET PO PRN ×2 (02:37→18:20)
[2018-04-01] MEDS: GUAIFENESIN/DEXTROMETHORPHAN 5 ML UDC PO PRN ×3 (02:37→21:11)
[2018-04-01 04:00] VITALS: BP 130/55
--- NOTE | 2018-04-01 04:42 | NUR ---
PT SLEEPING IN BED, NO COMPLAINTS AT THIS TIME. PT TOLERATING SUPPLEMENTAL O2 WELL. PT NOTED TO HAVE NONPRODUCTIVE COUGH THROUGHOUT THE NIGHT.
[2018-04-01 06:23] LABS: BASOPHILS % (AUTO) 0.1 % (0.0-2.0); HEMATOCRIT 28.6 % (31.2-41.9); HEMOGLOBIN 9.7 g/dL (10.9-14.3); LYMPHOCYTES # (AUTO) 0.6 K/uL (20.0-40.0); LYMPHOCYTES % (AUTO) 7.8 % (20.5-51.5); MEAN CORPUSCULAR HEMOGLOBIN 28.9 uug (24.7-32.8); MEAN CORPUSCULAR HGB CONC 34 g/dL (32.3-35.6); MEAN CORPUSCULAR VOLUME 85.3 fL (75.5-95.3); MONOCYTES # (AUTO) 0.3 K/uL (2.0-10.0); MONOCYTES % (AUTO) 4.2 % (0.0-11.0); NEUTROPHILS % (AUTO) 87.9 % (38.5-71.5); PLATELET COUNT (AUTO) 242 K/uL (179-408); RED BLOOD CELL COUNT(AUTO) 3.36 MIL/uL (3.63-4.92)
[2018-04-01] MEDS: PANTOPRAZOLE SODIUM 40 MG TABLET.DR PO SCH (06:26)
[2018-04-01] MEDS: predniSONE 20 MG TABLET PO SCH ×3 (06:26→21:06)
[2018-04-01 06:32] LABS: CARBON DIOXIDE 26 mmol/L (21-32); CHLORIDE 108 mmol/L (98-107); CREATININE 1.2 mg/dL (0.6-1.3); GLUCOSE 129 mg/dL (74-106); PHOSPHOROUS 4.3 mg/dL (2.5-4.9); UREA NITROGEN, BLOOD 22 mg/dL (7-18)
--- NOTE | 2018-04-01 07:10 | NUR ---
RECEIVED PATIENT IN BED, AWAKE, ALERT AND ORIENTED X4, IN NO ACUTE DISTRESS. DENIES ANY CHEST PAIN OR SOB. O2 ON AT 3LPM VIA NC. IV SITE ON LFA INTACT. WILL CONTINUE TO MONITOR
[2018-04-01] MEDS: IPRATROPIUM BROMIDE 0.5 MG/2.5 ML NEBU NEB SCH ×6 (07:47→23:27)
[2018-04-01] MEDS: ALBUTEROL SULFATE 2.5 MG/3 ML NEBU NEB SCH ×6 (07:47→23:26)
[2018-04-01] MEDS: AMLODIPINE 5 MG TABLET PO SCH (08:20)
[2018-04-01] MEDS: FLUTICASONE/VILANTEROL 1 EACH BLST.W.DEV INH SCH (08:21)
--- NOTE | 2018-04-01 10:00 | NUR ---
Oxygen lowered down to 2LPM at this time, patient saturating at 94-96%. Will continue to monitor.
[2018-04-01 11:25] VITALS: BP 120/50
[2018-04-01 15:27] VITALS: BP 120/60
[2018-04-01] MEDS: AZITHROMYCIN IV 250 MG in IV DEXTROSE 5% 250 ML IV SCH (17:02)
--- NOTE | 2018-04-01 17:56 | NUR ---
End of shift note: Patient is awake, alert and oriented x4, in no acute distress. O2 on at 2LPM via NC, saturating at 93-96%. continues on routine breathing treatment, able to tolerate well. Assisted to the bathroom as needed. Continues on IV atb as ordered, no A/R noted. SR on monitor. IV site on LFA intact. All needs attended and met. Will continue to monitor.
[2018-04-01 20:00] VITALS: BP_SYST 122; BP_SYST 151; BP_DIAS 49; BP_DIAS 94
[2018-04-01] MEDS: ACETAMINOPHEN 325 MG TABLET PO PRN (21:06)
[2018-04-01] MEDS: ATORVASTATIN 10 MG TABLET PO SCH (21:06)
--- NOTE | 2018-04-01 21:10 | NUR ---
PT'S A/A/O X4,COUGH SOMETIMES BUT NO SOB NOTED.ON O2 NC 2 LPM,PER PT STATED THAT "I COUGH A LOT TODAY";OFFERED COUGH MEDICATION TO PT MD'S ORDER AT THIS TIME,PT TOLERATED WELL NOTED.KEPT COMFORT.CALLED RT TO GIVE HHN RX ORDER;PT TOLERATED WELL.KEPT TELEMETRY,IT'S SR 88/MIN NOTED.
[2018-04-02] VITALS: BP 127/50
--- NOTE | 2018-04-02 00:30 | NUR ---
PT STATED THAT SHE FELT TOTALLY BETTER,DRY COUGH SOMETIMES BUT NO SOB NOTED.TELEMETRY'S SR 84/MIN.KEPT CALL-LIGHT WITHIN REACH.BED ALARM'S ON.CONTINUED MONITORING TO PT.
[2018-04-02 04:00] VITALS: BP 128/66
[2018-04-02] MEDS: ACETAMINOPHEN/CODEINE 300-30 MG TABLET PO PRN (04:46)
[2018-04-02] MEDS: GUAIFENESIN/DEXTROMETHORPHAN 5 ML UDC PO PRN (04:48)
[2018-04-02] MEDS: predniSONE 20 MG TABLET PO SCH ×2 (05:15→13:03)
[2018-04-02] MEDS: PANTOPRAZOLE SODIUM 40 MG TABLET.DR PO SCH (06:12)
[2018-04-02 06:16] LABS: BASOPHILS % (AUTO) 0.1 % (0.0-2.0); HEMATOCRIT 29.7 % (31.2-41.9); HEMOGLOBIN 10.2 g/dL (10.9-14.3); LYMPHOCYTES # (AUTO) 0.6 K/uL (20.0-40.0); LYMPHOCYTES % (AUTO) 5.7 % (20.5-51.5); MEAN CORPUSCULAR HEMOGLOBIN 29.6 uug (24.7-32.8); MEAN CORPUSCULAR HGB CONC 34 g/dL (32.3-35.6); MEAN CORPUSCULAR VOLUME 86.3 fL (75.5-95.3); MONOCYTES # (AUTO) 0.3 K/uL (2.0-10.0); MONOCYTES % (AUTO) 2.9 % (0.0-11.0); NEUTROPHILS # (AUTO) 9.9 K/uL (1.8-8.9); NEUTROPHILS % (AUTO) 91.3 % (38.5-71.5); PLATELET COUNT (AUTO) 277 K/uL (179-408); RED BLOOD CELL COUNT(AUTO) 3.44 MIL/uL (3.63-4.92); WHITE BLOOD COUNT (AUTO) 10.9 K/uL (3.8-11.8)
--- NOTE | 2018-04-02 06:30 | NUR ---
PT'S COMFORTABLE ON BED;DENIED OF PAIN OR ANY DISCOMFORT.PER PT STATED THAT" I SLEPT ONLY A LITTLE BIT";REINFORCED TO PT THAT I'S SITTING IN FRONT OF HER ROOM ALL THE TIME AND FOUND THAT PT SLEPT WELL DURING OF THE NIGHT,ESTIMATED ABOUT 8 HOURS.PT HAD COUGH ON/OFF,IT'S CONTROLLED W/MEDICATION NEED.PAIN AT THE BACK'S GETTING BETTER AFTER MEDICATION.NO DISTRESS NOTED IN THE SHIFT.
[2018-04-02 06:52] LABS: CARBON DIOXIDE 25 mmol/L (21-32); CHLORIDE 106 mmol/L (98-107); CREATININE 1.3 mg/dL (0.6-1.3); GLUCOSE 137 mg/dL (74-106); MAGNESIUM 2.2 mg/dL (1.8-2.4); PHOSPHOROUS 3.8 mg/dL (2.5-4.9); POTASSIUM 4.4 mmol/L (3.5-5.1); UREA NITROGEN, BLOOD 33 mg/dL (7-18)
[2018-04-02] MEDS: ALBUTEROL SULFATE 2.5 MG/3 ML NEBU NEB SCH ×2 (07:28→11:44)
[2018-04-02] MEDS: IPRATROPIUM BROMIDE 0.5 MG/2.5 ML NEBU NEB SCH ×2 (07:29→11:44)
--- NOTE | 2018-04-02 07:53 | NUR ---
Received pt awake, alert and oriented times 4. Pt able to verbalize needs. Pt received breathing treatment by RT. Pt able to ambulate to restroom, noted HR at 140 by television engineering teacher. Pt states she is okay
[2018-04-02] MEDS: FLUTICASONE/VILANTEROL 1 EACH BLST.W.DEV INH SCH (09:55)
[2018-04-02] MEDS: AMLODIPINE 5 MG TABLET PO SCH (09:56)
[2018-04-02] MEDS ORDERED: AZIT250T13 PO (10:01)
[2018-04-02] MEDS ORDERED: PRED20TA PO (10:01)
[2018-04-02] MEDS ORDERED: LEVA15HF5 INH (10:01)
[2018-04-02] MEDS ORDERED: GUAI5SYR PO (10:01)
[2018-04-02] MEDS ORDERED: GUAI600T53 PO (10:01)
[2018-04-02 11:40] VITALS: BP 120/43
--- NOTE | 2018-04-02 13:20 | NUR ---
Pt was discharged with orders from CLAUS Alanis. IV line and ID band removed. Personal belongings accounted for and signed by the patient. Discharge paper explained and signed by the patient, ansd son in the room. Pharmacist called and consultation taken place in regards to new medicatio Addendum: 04/02/18 at 1423 by ROSETTA TURNER RN *new medications. Pt stated she has a scheduled appointment next week with her PCP. Pt was wheeled downstair to the lobby via wheelchair accompanied by RN and her . Pt was picked up by her son. No immediate s/s of pain or distress. Still noted with some difficulty breathing
== END 2018-04-02 13:20 | disposition home or self-care (01) | DRG 190 ==
LOC: ER 13:45 → TELE 16:49
PROVIDERS: ADMIT Internal Medicine; ATTEND Registered Nurse
DX: J44.1 Chronic obstructive pulmonary disease with (acute) exacerbation (principal); N17.0 Acute kidney failure with tubular necrosis; J45.901 Unspecified asthma with (acute) exacerbation; F17.210 Nicotine dependence, cigarettes, uncomplicated; I25.10 Atherosclerotic heart disease of native coronary artery without angina pectoris; Z88.0 Allergy status to penicillin; I11.9 Hypertensive heart disease without heart failure; I70.0 Atherosclerosis of aorta; M19.042 Primary osteoarthritis, left hand; M19.041 Primary osteoarthritis, right hand; M19.012 Primary osteoarthritis, left shoulder; M19.011 Primary osteoarthritis, right shoulder; E87.6 Hypokalemia; E11.9 Type 2 diabetes mellitus without complications; Z90.722 Acquired absence of ovaries, bilateral; E78.5 Hyperlipidemia, unspecified; R91.8 Other nonspecific abnormal finding of lung field; Z87.19 Personal history of other diseases of the digestive system
CPT/HCPCS: 36415; 70030-TC; 71045; 83605; 83735; 84100; 84443; 85025; 87040; 87070; 92523; 92610; 93005; 94640; 94664; 97110; 97116; 97165; 97530; A4663; J0456; J3590; J7060; J7512

== ENCOUNTER 2018-10-11 10:36 | Inpatient (IN) | payer MEDICARE, MEDICAID ==
[~2018-10-11] VITALS: Ht 157.5 cm; Wt 49.9 kg
[~2018-10-11 10:36] MED LIST changes: +AZIT250T13 PO; +BUDE10.22 IH; +ENAL20TA PO; +FENO54TA PO; -FLUT1DIS27 PO; +GUAI5SYR PO; +GUAI600T53 PO; +LEVA15HF5 INH; -LEVO250T2 PO; -METR500T4 PO; -NICO-672 TD; +PRED20TA PO
--- NOTE | 2018-10-11 10:50 | NUR ---
PT A/OX4, PRESENTS TO THE ER W/ SON C/O DIZZINESS. PER PT'S REPORT, SHE WAS JUST SEEN AT AN URGENT CARE AND INFORMED TO GO TO THE ER DUE TO HYPERTENSION. PT VS WNL. PT DENIES PAIN, C/P, SOB, N/V/D, HEADACHE.
--- NOTE | 2018-10-11 11:00 | NUR ---
CHAZ FUENTES AT BEDSIDE FOR MSE.
[2018-10-11 11:20] LABS: BASOPHILS % (AUTO) 0.6 % (0.0-2.0); EOSINOPHILS # (AUTO) 0.2 K/uL (0.0-0.7); EOSINOPHILS % (AUTO) 2.6 % (0.0-7.0); HEMATOCRIT 37.6 % (31.2-41.9); HEMOGLOBIN 12.5 g/dL (10.9-14.3); LYMPHOCYTES # (AUTO) 2.5 K/uL (20.0-40.0); LYMPHOCYTES % (AUTO) 38.8 % (20.5-51.5); MEAN CORPUSCULAR HEMOGLOBIN 28.2 uug (24.7-32.8); MEAN CORPUSCULAR HGB CONC 33 g/dL (32.3-35.6); MONOCYTES # (AUTO) 0.6 K/uL (2.0-10.0); MONOCYTES % (AUTO) 9.8 % (0.0-11.0); NEUTROPHILS # (AUTO) 3.1 K/uL (1.8-8.9); NEUTROPHILS % (AUTO) 48.2 % (38.5-71.5); PLATELET COUNT (AUTO) 277 K/uL (179-408); RED BLOOD CELL COUNT(AUTO) 4.43 MIL/uL (3.63-4.92); WHITE BLOOD COUNT (AUTO) 6.4 K/uL (3.8-11.8)
[2018-10-11 11:31] LABS: CARBON DIOXIDE 28 mmol/L (21-32); CHLORIDE 103 mmol/L (98-107); CREATININE 1.3 mg/dL (0.6-1.3); GLUCOSE 95 mg/dL (74-106); POTASSIUM 4.4 mmol/L (3.5-5.1); UREA NITROGEN, BLOOD 29 mg/dL (7-18)
[2018-10-11 11:43] LABS: ALANINE AMINOTRANSFERASE 16 U/L (14-59); ALKALINE PHOSPHATASE 67 U/L (50-136); ASPARTATE AMINOTRANSFERASE 16 U/L (15-37); BILIRUBIN,DIRECT 0.1 mg/dL (0.0-0.2); BILIRUBIN,TOTAL 0.4 mg/dL (0.2-1.0)
[2018-10-11] MEDS ORDERED: IV NORMAL SALINE 500 ML BAG IV ONE (12:00)
[2018-10-11] MEDS ORDERED: ASPIRIN 81 MG TAB.CHEW PO ONE (12:00)
[2018-10-11] MEDS ORDERED: MECLIZINE HCL 25 MG TABLET PO ONE (12:00)
--- NOTE | 2018-10-11 12:01 | NUR ---
PAGED [facility] FOR PANEL CALL - AWAITING CALLBACK FROM DR. CRUZ. ATTEMPT 1.
[2018-10-11] MEDS ORDERED: MECLIZINE HCL 25 MG TABLET ONE (12:06)
[2018-10-11] MEDS ORDERED: ASPIRIN 81 MG TAB.CHEW ONE (12:06)
--- NOTE | 2018-10-11 12:50 | NUR ---
ADMITTING REPORT GIVEN TO JOSE DEE.
--- NOTE | 2018-10-11 12:52 | NUR ---
Pt. admitted to TELE 207, under care of Dr. CRUZ. Belongs List completed
--- NOTE | 2018-10-11 13:10 | NUR ---
RECEIVED PATIENT FROM ER, NOTIFIED DR NUNEZ. CARDIAC DIET ORDER CONFIRMED BY AND PUT IN. PATIENT IS LYING IN BED, BED IS IN LOW LOCKED POSITION WITH HOB ELEVATED. VSS. NO DISTRESS NOTED. PATIENT HAS R AC 18G PATENT AND INTACT, SALINE FLUSH. AWAITING ORDERS FROM
[2018-10-11 13:45] VITALS: BP 153/56
[2018-10-11] MEDS ORDERED: ONDANSETRON 4 MG/2 ML VIAL IV PRN (14:30)
[2018-10-11] MEDS ORDERED: ZOLPIDEM 5 MG TABLET PO PRN (14:30)
[2018-10-11] MEDS ORDERED: CLONIDINE HCL 0.1 MG TABLET PO PRN (14:30)
[2018-10-11] MEDS: ACETAMINOPHEN 325 MG TABLET PO PRN (15:25)
--- NOTE | 2018-10-11 18:46 | NUR ---
PATIENT IS LYING IN BED, BED IS IN LOW LOCKED POSITION WITH CALL LIGHT IN REACH. NO DISTRESS NOTED. PATIENT DENIES ANY CHEST PAIN/SOB.
[2018-10-11] MEDS: ACETAMINOPHEN/CODEINE 300-30 MG TABLET PO PRN (19:46)
[2018-10-11 20:00] VITALS: BP 123/44
[2018-10-11] MEDS ORDERED: DOCUSATE SODIUM 100 MG CAPSULE PO SCH (21:00)
--- NOTE | 2018-10-11 21:03 | NUR ---
RECEIVED PT AWAKE, ALERT AND ORIENTEDX4. PT COMPLAINT OF HEADACHE. PT VITAL SIGNS STABLE. SAFETY AND COMFORT PROVIDED. WILL CONTINUE TO MONITOR.
[2018-10-12] VITALS: BP 143/41
[2018-10-12] MEDS: ACETAMINOPHEN 325 MG TABLET PO PRN ×2 (03:42→10:38)
[2018-10-12 04:00] VITALS: BP 118/38
--- NOTE | 2018-10-12 06:13 | NUR ---
PT SLEPT THROUGHOUT THE SHIFT. PT SHOWS NO SIGNS OF ACUTE DISTRESS. IV INTACT. SAFETY AND COMFORT PROVIDED. PRESCRIBED MEDICATION GIVEN AND PT TOLERATED IT WELL. ALL NEEDS ARE MET. WILL ENDORSE ACCORDINGLY TO INCOMING NURSE FOR CONTINUITY OF CARE.
[2018-10-12 06:30] LABS: BASOPHILS % (AUTO) 0.6 % (0.0-2.0); EOSINOPHILS # (AUTO) 0.2 K/uL (0.0-0.7); EOSINOPHILS % (AUTO) 3.8 % (0.0-7.0); HEMATOCRIT 33.2 % (31.2-41.9); HEMOGLOBIN 11.2 g/dL (10.9-14.3); LYMPHOCYTES # (AUTO) 2.3 K/uL (20.0-40.0); LYMPHOCYTES % (AUTO) 39.1 % (20.5-51.5); MEAN CORPUSCULAR HEMOGLOBIN 28.7 uug (24.7-32.8); MEAN CORPUSCULAR HGB CONC 34 g/dL (32.3-35.6); MEAN CORPUSCULAR VOLUME 85.3 fL (75.5-95.3); MONOCYTES # (AUTO) 0.6 K/uL (2.0-10.0); MONOCYTES % (AUTO) 9.8 % (0.0-11.0); NEUTROPHILS # (AUTO) 2.7 K/uL (1.8-8.9); NEUTROPHILS % (AUTO) 46.7 % (38.5-71.5); PLATELET COUNT (AUTO) 235 K/uL (179-408); RED BLOOD CELL COUNT(AUTO) 3.89 MIL/uL (3.63-4.92); WHITE BLOOD COUNT (AUTO) 5.8 K/uL (3.8-11.8)
[2018-10-12] MEDS ORDERED: PANTOPRAZOLE SODIUM 40 MG TABLET.DR PO SCH ×2 (07:00)
[2018-10-12 07:01] LABS: ALANINE AMINOTRANSFERASE 13 U/L (14-59); ALKALINE PHOSPHATASE 58 U/L (50-136); ASPARTATE AMINOTRANSFERASE 17 U/L (15-37); BILIRUBIN,TOTAL 0.4 mg/dL (0.2-1.0); CARBON DIOXIDE 27 mmol/L (21-32); CHLORIDE 105 mmol/L (98-107); CHOLESTEROL 256 mg/dL (<200); CREATININE 1.4 mg/dL (0.6-1.3); GLUCOSE 85 mg/dL (74-106); HDL CHOLESTEROL 58 mg/dL (40-60); MAGNESIUM 2.1 mg/dL (1.8-2.4); POTASSIUM 4.4 mmol/L (3.5-5.1); TOTAL PROTEIN, SERUM 6.3 g/dL (6.4-8.2); TRIGLYCERIDES 132 MG/DL (30-150); UREA NITROGEN, BLOOD 30 mg/dL (7-18)
[2018-10-12 07:03] LABS: IRON, SERUM 72 ug/dL (50-175)
--- NOTE | 2018-10-12 07:15 | NUR ---
PATIENT WENT TO THE BATHROOM AND NOW BACK IN BED, BED IS IN LOW LOCKED POSITION WITH CALL LIGHT IN REACH. NO DISTRESS NOTED. PATIENT DENIES ANY CHEST PAIN/SOB.
[2018-10-12 07:56] LABS: THYROID STIMULATING HORMONE 1.712 mIU/mL (0.358-3.740)
[2018-10-12] MEDS: ACETAMINOPHEN/CODEINE 300-30 MG TABLET PO PRN (08:10)
[2018-10-12] MEDS ORDERED: ASPIRIN 81 MG TAB.CHEW PO SCH (09:00)
[2018-10-12] MEDS ORDERED: FLUTICASONE/VILANTEROL 1 EACH BLST.W.DEV INH SCH (09:00)
[2018-10-12] MEDS ORDERED: AMLODIPINE 5 MG TABLET PO SCH (09:00)
[2018-10-12 11:23] VITALS: BP 136/45
[2018-10-12] MEDS ORDERED: ATOR10TA PO (14:37)
[2018-10-12] MEDS ORDERED: FLUT1BLS INH (14:37)
[2018-10-12] MEDS ORDERED: AMLO5TAB4 PO (14:37)
[2018-10-12 15:14] VITALS: BP 127/47
--- NOTE | 2018-10-12 15:45 | NUR ---
PATIENT IS A/O 3, NO SOB OR DISTRESS, VS WNL PATIENT DISCHARGE INSTRUCTIONS GIVEN WITH HARD COPY, I TOOK PATIENT DOWN BY WHEEL CHAIR AND ALI SON IS DRIVING HOME.
== END 2018-10-12 15:45 | disposition home or self-care (01) | DRG 304 ==
LOC: ER 10:36 → TELE 12:57
PROVIDERS: ADMIT Internal Medicine; ATTEND Internal Medicine
DX: I11.9 Hypertensive heart disease without heart failure (principal); N17.0 Acute kidney failure with tubular necrosis; J44.9 Chronic obstructive pulmonary disease, unspecified; Z87.891 Personal history of nicotine dependence; M41.9 Scoliosis, unspecified; H54.62 Unqualified visual loss, left eye, normal vision right eye; M19.90 Unspecified osteoarthritis, unspecified site; G89.29 Other chronic pain; I08.0 Rheumatic disorders of both mitral and aortic valves; E11.9 Type 2 diabetes mellitus without complications; E78.5 Hyperlipidemia, unspecified; D35.02 Benign neoplasm of left adrenal gland; I27.20 Pulmonary hypertension, unspecified; Z86.010 Personal history of colon polyps; M85.80 Other specified disorders of bone density and structure, unspecified site; Z87.442 Personal history of urinary calculi; Z87.440 Personal history of urinary (tract) infections; Z79.51 Long term (current) use of inhaled steroids; E86.9 Volume depletion, unspecified; I25.10 Atherosclerotic heart disease of native coronary artery without angina pectoris
CPT/HCPCS: 36415; 70030-TC; 70450; 71045; 83550; 83605; 83735; 84100; 84443; 85025; 85730; 93005; 93307; 97116; 97530; A4663; G0378; J7040; J8597

== ENCOUNTER 2019-01-27 09:36 | Inpatient (IN) | payer MEDICARE, MEDICAID ==
[~2019-01-27] VITALS: Ht 165.1 cm; Wt 54.4 kg
[~2019-01-27 09:36] MED LIST changes: -AZIT250T13 PO; -BUDE10.22 IH; -ENAL20TA PO; -FENO54TA PO; +FLUT1BLS INH; -GUAI5SYR PO; -GUAI600T53 PO; -LEVA15HF5 INH; -PRED20TA PO
--- NOTE | 2019-01-27 09:40 | NUR ---
Dr Morgan at the bedside for MSE.
[2019-01-27] MEDS ORDERED: ALBUTEROL SULFATE 2.5 MG/3 ML NEBU NEB ONE ×2 (09:45→10:30)
[2019-01-27] MEDS ORDERED: IPRATROPIUM BROMIDE 0.5 MG/2.5 ML NEBU ONE (09:51)
[2019-01-27] MEDS ORDERED: ALBUTEROL SULFATE 2.5 MG/3 ML NEBU ONE ×2 (09:51→10:37)
[2019-01-27] MEDS ORDERED: IPRATROPIUM BROMIDE 0.5 MG/2.5 ML NEBU NEB ONE (10:00)
[2019-01-27 10:05] LABS: BASOPHILS # (AUTO) 0.1 K/uL (0.0-8.0); BASOPHILS % (AUTO) 1.3 % (0.0-2.0); EOSINOPHILS # (AUTO) 0.2 K/uL (0.0-0.7); EOSINOPHILS % (AUTO) 3.1 % (0.0-7.0); HEMATOCRIT 36.3 % (31.2-41.9); HEMOGLOBIN 11.8 g/dL (10.9-14.3); LYMPHOCYTES # (AUTO) 2.3 K/uL (20.0-40.0); LYMPHOCYTES % (AUTO) 32.6 % (20.5-51.5); MEAN CORPUSCULAR HEMOGLOBIN 27.8 uug (24.7-32.8); MEAN CORPUSCULAR HGB CONC 33 g/dL (32.3-35.6); MEAN CORPUSCULAR VOLUME 85.2 fL (75.5-95.3); MONOCYTES # (AUTO) 0.8 K/uL (2.0-10.0); MONOCYTES % (AUTO) 11.6 % (0.0-11.0); NEUTROPHILS # (AUTO) 3.6 K/uL (1.8-8.9); NEUTROPHILS % (AUTO) 51.4 % (38.5-71.5); PLATELET COUNT (AUTO) 236 K/uL (179-408); RED BLOOD CELL COUNT(AUTO) 4.26 MIL/uL (3.63-4.92); WHITE BLOOD COUNT (AUTO) 7.1 K/uL (3.8-11.8)
[2019-01-27] MEDS ORDERED: TIOT18CA3 IH (10:09)
[2019-01-27] MEDS ORDERED: BUDE10.22 INH (10:09)
[2019-01-27 10:14] LABS: CARBON DIOXIDE 28 mmol/L (21-32); CHLORIDE 104 mmol/L (98-107); CREATININE 1.2 mg/dL (0.6-1.3); GLUCOSE 89 mg/dL (74-106); POTASSIUM 4.1 mmol/L (3.5-5.1); UREA NITROGEN, BLOOD 22 mg/dL (7-18)
[2019-01-27 10:31] LABS: ALANINE AMINOTRANSFERASE 24 U/L (14-59); ALKALINE PHOSPHATASE 84 U/L (50-136); ASPARTATE AMINOTRANSFERASE 16 U/L (15-37); BILIRUBIN,DIRECT 0.1 mg/dL (0.0-0.2); BILIRUBIN,TOTAL 0.8 mg/dL (0.2-1.0); TOTAL PROTEIN, SERUM 6.9 g/dL (6.4-8.2)
[2019-01-27] MEDS ORDERED: predniSONE 50 MG TABLET ONE (10:50)
--- NOTE | 2019-01-27 10:50 | NUR ---
CHAZ FUENTES SPOKE TO DR MAZARIEGOS, FROM [facility] [place] FOR PT TO BE ADMITTED TO TELE BED.
[2019-01-27] MEDS ORDERED: predniSONE 50 MG TABLET PO ONE (11:00)
[2019-01-27 12:00] VITALS: BP 132/44
[2019-01-27] MEDS ORDERED: ONDANSETRON 4 MG/2 ML VIAL IV PRN (12:15)
[2019-01-27] MEDS: ALBUTEROL SULFATE 2.5 MG/3 ML NEBU NEB SCH ×4 (12:15→23:32)
[2019-01-27] MEDS ORDERED: Z GUARD REMEDY PASTE 57 GM TUBE TOP PRN (12:15)
[2019-01-27] MEDS: IPRATROPIUM BROMIDE 0.5 MG/2.5 ML NEBU NEB SCH ×4 (12:15→23:32)
[2019-01-27] MEDS ORDERED: MAGNESIUM HYDROXIDE 30 ML LIQUID UDC PO PRN (12:15)
[2019-01-27] MEDS: ACETAMINOPHEN 325 MG TABLET PO PRN ×2 (13:51→20:57)
[2019-01-27] MEDS: AZITHROMYCIN 250 MG TABLET PO SCH (13:54)
[2019-01-27 15:24] VITALS: BP 122/47
[2019-01-27] MEDS: ACETAMINOPHEN/CODEINE 300-30 MG TABLET PO PRN (16:53)
--- NOTE | 2019-01-27 19:36 | NUR ---
REC'D PT ON NC AT 2LPM. NO SOB NOTED. PT IS AWAKE AND RESPONSIVE. TX YOKO WELL, NO ADVERSE REACTIONS NOTED. WILL CONTINUE TO MONITOR PT
--- NOTE | 2019-01-27 20:00 | NUR ---
Received patient laying comfortably in bed. A/O x 3. Denies pain or SOB at the moment. Patient states "this room is so depressing". USP assessment done. Skin intact. Patient is on O2 2L NC. Safety initiated. Call light within reach. Will continue to monitor. Room is left clutter free. Bed in low and locked position.
[2019-01-27] MEDS: ATORVASTATIN 10 MG TABLET PO SCH (20:34)
[2019-01-27] MEDS: DOCUSATE SODIUM 250 MG CAPSULE PO SCH ×2 (20:34→20:37)
[2019-01-27] MEDS: methylPREDNISolone SOD SUCC 40 MG/ML VIAL IV SCH (20:34)
[2019-01-27] MEDS: AMLODIPINE 5 MG TABLET PO SCH (20:34)
[2019-01-27 20:42] VITALS: BP 112/50
--- NOTE | 2019-01-27 21:00 | NUR ---
Patient refused 2100 Colace and Norvasc. BP was 115/44. Will continue to monitor.
[2019-01-28 00:34] VITALS: BP 132/54
[2019-01-28] MEDS: ALBUTEROL SULFATE 2.5 MG/3 ML NEBU NEB SCH ×7 (02:58→23:05)
[2019-01-28] MEDS: IPRATROPIUM BROMIDE 0.5 MG/2.5 ML NEBU NEB SCH ×7 (02:59→23:05)
[2019-01-28] MEDS: ACETAMINOPHEN/CODEINE 300-30 MG TABLET PO PRN ×2 (04:29→17:45)
[2019-01-28 05:29] VITALS: BP 106/52
--- NOTE | 2019-01-28 05:35 | NUR ---
Patient c/o of neck and shoulder pain 03/08. Medication given, stated relief. Patient slept intermittently t/o shift. Remains A/O x 4. In room air. Vital signs stable. Patient is ambulatory and calls for help when needed. TELE SR at 86. Safety and comfort measures maintained t/o shift. All meds given as ordered. All needs met.
[2019-01-28] MEDS: PANTOPRAZOLE SODIUM 40 MG TABLET.DR PO SCH (06:32)
[2019-01-28 07:05] LABS: HEMATOCRIT 36.2 % (31.2-41.9); HEMOGLOBIN 11.7 g/dL (10.9-14.3); LYMPHOCYTES # (AUTO) 0.8 K/uL (20.0-40.0); LYMPHOCYTES % (AUTO) 6.6 % (20.5-51.5); MEAN CORPUSCULAR HEMOGLOBIN 27.7 uug (24.7-32.8); MEAN CORPUSCULAR HGB CONC 32 g/dL (32.3-35.6); MEAN CORPUSCULAR VOLUME 85.5 fL (75.5-95.3); MONOCYTES # (AUTO) 0.2 K/uL (2.0-10.0); MONOCYTES % (AUTO) 1.3 % (0.0-11.0); NEUTROPHILS # (AUTO) 11.3 K/uL (1.8-8.9); NEUTROPHILS % (AUTO) 92.1 % (38.5-71.5); PLATELET COUNT (AUTO) 232 K/uL (179-408); RED BLOOD CELL COUNT(AUTO) 4.23 MIL/uL (3.63-4.92); WHITE BLOOD COUNT (AUTO) 12.3 K/uL (3.8-11.8)
[2019-01-28 07:21] LABS: CARBON DIOXIDE 27 mmol/L (21-32); CHLORIDE 105 mmol/L (98-107); CHOLESTEROL 258 mg/dL (<200); CREATININE 1.3 mg/dL (0.6-1.3); GLUCOSE 143 mg/dL (74-106); HDL CHOLESTEROL 73 mg/dL (40-60); MAGNESIUM 2.2 mg/dL (1.8-2.4); PHOSPHOROUS 3.7 mg/dL (2.5-4.9); POTASSIUM 4.9 mmol/L (3.5-5.1); TRIGLYCERIDES 105 MG/DL (30-150); UREA NITROGEN, BLOOD 28 mg/dL (7-18)
[2019-01-28 07:22] LABS: THYROID STIMULATING HORMONE 0.504 mIU/mL (0.358-3.740)
[2019-01-28 08:58] VITALS: BP 129/45
[2019-01-28] MEDS: AMLODIPINE 5 MG TABLET PO SCH ×2 (09:00→21:04)
[2019-01-28] MEDS: methylPREDNISolone SOD SUCC 40 MG/ML VIAL IV SCH (09:00)
[2019-01-28] MEDS ORDERED: IV NS 1000 ML 1,000 ML IV ONE (10:15)
[2019-01-28] MEDS: ACETAMINOPHEN 325 MG TABLET PO PRN ×2 (11:01→21:21)
[2019-01-28] MEDS: AZITHROMYCIN 250 MG TABLET PO SCH (12:37)
[2019-01-28 12:55] VITALS: BP 123/45
[2019-01-28 15:22] LABS: *BILIRUBIN,URIN NEGATIVE (NEGATIVE); *BLOOD, URINE NEGATIVE (NEGATIVE); *CLARITY,URINE CLEAR (CLEAR); *COLOR,URINE YELLOW (YELLOW); *KETONES,URINE NEGATIVE (NEGATIVE); *UROBILINOGEN,URINE 0.2 E.U./dl (NORMAL); LEUKOCYTE ESTERASE ,URINE NEGATIVE (NEGATIVE); NITRITE, URINE NEGATIVE (NEGATIVE); PH,URINE 5.5 (5.0-8.0); UGLUCOSE NEGATIVE (NEGATIVE)
[2019-01-28 15:44] VITALS: BP 108/41
--- NOTE | 2019-01-28 18:41 | NUR ---
PATIENT COMPLIANT THROUGHOUT SHIFT. PATIENT RECEIVED BREATHING TREATMENTS THROUGHOUT THE DAY, WITH NO DISTRESS. PATIENT REPORTED PAIN IN UPPER SHOULDERS PAIN MEDICATION GIVEN. VITAL SIGNS STABLE. BED IN LOWEST POSITION WITH SIDE RAILS UP X2, CALL LIGHT WITHIN REACH.
--- NOTE | 2019-01-28 19:30 | NUR ---
PATIENT RECEIVED LYING IN BED. NO SIGNS OF ACUTE DISTRESS NOTED AT THIS TIME. WILL CONTINUE CARE. SAFETY AND COMFORT MEASURES PROVIDED. BED IN LOWEST POSITION, SIDE RAILS UP X2, BED ALARM ON, CALL LIGHT WITHIN REACH. C/O OF RIGHT SHOULDER ADMINISTERED TYLENOL AND PATIENT TOLERATED WELL.
[2019-01-28 20:23] VITALS: BP 107/41
[2019-01-28] MEDS: ATORVASTATIN 10 MG TABLET PO SCH (21:04)
[2019-01-28] MEDS: DOCUSATE SODIUM 250 MG CAPSULE PO SCH (21:04)
[2019-01-29 00:01] VITALS: BP 106/43
[2019-01-29] MEDS: IPRATROPIUM BROMIDE 0.5 MG/2.5 ML NEBU NEB SCH ×3 (03:13→10:49)
[2019-01-29] MEDS: ALBUTEROL SULFATE 2.5 MG/3 ML NEBU NEB SCH ×3 (03:13→10:49)
[2019-01-29] MEDS: ACETAMINOPHEN 325 MG TABLET PO PRN ×2 (03:24→09:46)
[2019-01-29 04:01] VITALS: BP 102/41
--- NOTE | 2019-01-29 05:26 | NUR ---
PATIENT RECEIVED LYING IN BED. NO SIGNS OF ACUTE DISTRESS NOTED AT THIS TIME. WILL CONTINUE CARE. SAFETY AND COMFORT MEASURES PROVIDED. BED IN LOWEST POSITION, SIDE RAILS UP X2, BED ALARM ON, CALL LIGHT WITHIN REACH. MEDICATION ADMINISTERED AND TOLERATED WELL. WILL ENDORSE CARE TO MORNING NURSE. Addendum: 01/29/19 at 0531 by SILVIA GRANT RN CORRECTION: PATIENT SLEPT INTERMITTENTLY THROUGHOUT THE NIGHT NOT RECEIVED LYING IN BED.
[2019-01-29] MEDS: PANTOPRAZOLE SODIUM 40 MG TABLET.DR PO SCH (06:20)
[2019-01-29 06:55] LABS: BASOPHILS % (AUTO) 0.1 % (0.0-2.0); HEMOGLOBIN 10.7 g/dL (10.9-14.3); LYMPHOCYTES # (AUTO) 1.5 K/uL (20.0-40.0); LYMPHOCYTES % (AUTO) 8.5 % (20.5-51.5); MEAN CORPUSCULAR HEMOGLOBIN 28.6 uug (24.7-32.8); MEAN CORPUSCULAR HGB CONC 33 g/dL (32.3-35.6); MEAN CORPUSCULAR VOLUME 86.8 fL (75.5-95.3); MONOCYTES % (AUTO) 5.3 % (0.0-11.0); NEUTROPHILS # (AUTO) 15.4 K/uL (1.8-8.9); NEUTROPHILS % (AUTO) 86.1 % (38.5-71.5); PLATELET COUNT (AUTO) 220 K/uL (179-408); RED BLOOD CELL COUNT(AUTO) 3.74 MIL/uL (3.63-4.92); WHITE BLOOD COUNT (AUTO) 17.9 K/uL (3.8-11.8)
[2019-01-29 07:04] LABS: CARBON DIOXIDE 27 mmol/L (21-32); CHLORIDE 109 mmol/L (98-107); POTASSIUM 4.7 mmol/L (3.5-5.1)
[2019-01-29 07:24] LABS: CREATININE 1.2 mg/dL (0.6-1.3); GLUCOSE 103 mg/dL (74-106); MAGNESIUM 2.4 mg/dL (1.8-2.4); PHOSPHOROUS 3.1 mg/dL (2.5-4.9); UREA NITROGEN, BLOOD 35 mg/dL (7-18)
--- NOTE | 2019-01-29 07:56 | NUR ---
PATIENT IS LAYING IN BED AWAKE, ALERT ORIENTED X4, VERBALLY RESPONSIVE, NO SOB, RESP EVEN NONLABORED,ON CONTINUOUS 2LITER SUPPLEMENTAL OXYGEN VIA NASAL CANULA, NO ACUTE DISTRESS NOTED AT THIS TIME
[2019-01-29 07:57] LABS: HEMATOCRIT 33.1 % (31.2-41.9)
[2019-01-29] MEDS: AMLODIPINE 5 MG TABLET PO SCH (08:24)
[2019-01-29] MEDS ORDERED: FLUTICASONE/VILANTEROL 1 EACH BLST.W.DEV INH SCH (09:00)
[2019-01-29] MEDS ORDERED: methylPREDNISolone SOD SUCC 40 MG/ML VIAL IV SCH (09:00)
--- NOTE | 2019-01-29 09:51 | NUR ---
PATIENT IS ALERT, ORIENTED X4, VERBALLY RESPONSIVE, NO SOB, RESP, EVEN NONLABORED,SKIN WARM AND DRY TO TOUCH, PATIENT COMPLAINED ON AND OFF CRAMPS AND HAVING MULTIPLE BMs DURING NIGHT, AND ONCE UNTIL NOW SINCE 7AM, BM IS SOFT, BROWN, BS SOUNDS HYPERACTIVE TO BOTH LOWER QUADRANTS AND ACTIVE TO BOTH UPPER QUADRANTS, AMMUNITION ASSEMBLY I LABORER Jose Daniel MAZARIEGOS ABOUT PATIENT CONCERN, WITH NNO AT THIS TIME, TYLENOL ADMINISTERED ORDERED TO RELIEVE CRAMPS. WILL CONTINUE TO MONITOR
[2019-01-29] MEDS ORDERED: AZIT250T13 PO (11:52)
[2019-01-29] MEDS ORDERED: LACT1CAP57 PO (11:52)
[2019-01-29] MEDS ORDERED: METH4TAB3 PO (11:52)
[2019-01-29] MEDS: AZITHROMYCIN 250 MG TABLET PO SCH (11:55)
[2019-01-29 12:36] VITALS: BP 130/48
--- NOTE | 2019-01-29 14:00 | NUR ---
PATIENT DISCHARGED HOME WITH HER SON. STABLE CONDITION, PATIENT IS ALERT, ORIENTED X4, VERBALLY RESPONSIVE,NO SOB, RESP EVEN NONLABORED,SKIN WARM AND DRY TO TOUCH, SKIN INTACT BELONGINGS ACCOUNTED AND SIGNED BY SON, SON REFUSED TO HAVE PHARMACIST CONSULT STATED [facility] WILL EXPLAIN TO HIM ONCE HE HAS THE PRESCRIPTION READY. DISCHARGE INSTRUCTION GIVEN TO PATIENT AND SON, VERBALIZED UNDERSTANDING OF IT. ID BAND AND IV ACCESS REMOVED.
== END 2019-01-29 13:15 | disposition home or self-care (01) | DRG 191 ==
LOC: ER 09:36 → TELE3 11:40
PROVIDERS: ADMIT Registered Nurse; ATTEND Registered Nurse
DX: J44.1 Chronic obstructive pulmonary disease with (acute) exacerbation (principal); K52.1 Toxic gastroenteritis and colitis; J06.9 Acute upper respiratory infection, unspecified; G89.29 Other chronic pain; M54.5 Low back pain; Z87.891 Personal history of nicotine dependence; Z79.899 Other long term (current) drug therapy; Z79.51 Long term (current) use of inhaled steroids; E78.5 Hyperlipidemia, unspecified; I11.9 Hypertensive heart disease without heart failure; E86.0 Dehydration; R79.89 Other specified abnormal findings of blood chemistry; F41.9 Anxiety disorder, unspecified; I25.10 Atherosclerotic heart disease of native coronary artery without angina pectoris; M19.042 Primary osteoarthritis, left hand; M19.041 Primary osteoarthritis, right hand; M19.012 Primary osteoarthritis, left shoulder; M19.011 Primary osteoarthritis, right shoulder; T36.3X5A Adverse effect of macrolides, initial encounter; Y92.231 Patient bathroom in hospital as the place of occurrence of the external cause
CPT/HCPCS: 36415; 70030-TC; 71045; 83735; 84100; 84443; 85025; 85730; 93005; 94640; 94664; 97116; A4663; G0378; J2920; J3590; J7030; J7512; Q0144

== ENCOUNTER 2019-02-11 09:34 | Emergency (ER) | payer MEDICARE, MEDICAID ==
[~2019-02-11] VITALS: Ht 162.6 cm; Wt 54.4 kg
[~2019-02-11 09:34] MED LIST changes: +AZIT250T13 PO; +BUDE10.22 INH; -FLUT1BLS INH; +LACT1CAP57 PO; +METH4TAB3 PO; -PANT40TA2 PO; +TIOT18CA3 IH
[2019-02-11] MEDS ORDERED: HYDROCODONE/APAP 5-325MG TABLET PO ONE (10:15)
[2019-02-11] MEDS ORDERED: LIDOCAINE VISCUS 2% 15 ML UDC MM ONE (10:15)
--- NOTE | 2019-02-11 10:36 | NUR ---
1395 md at bedside with pt's son, informed pt had shingles on left side of chest 5 years ago and is very stressed she has them again, went into acute care and was given keflex PO. Pt informed this is shingles by MD and concerns addressed, pt c/o pain in mouth and soars on inside and outside of mouth along with soars on left and more on right side of face, encouraged to come into see doctor if the soars spread to eye or eyelid or swelling to eye or eyelid, verbalized understanding. Pt states she does have cataracts and goes to have injections monthly at this time, MD aware. [id number] pt given discharge instructions and pharmacy called to clear up problem with xilocaine viscus availability in pyxis to give pt., pt encouraged to take the pain medication [place] as prescribed and MD instructed me to tell pt to take her Tylenol #3 as prescribed for her arthristis and okay to take both due to different pain types. Pt and sons verbalized understanding, pt given handouts on shingles and encouraged pt to do mindfulness exercises to reduce stress and know they will go away with antiviral medication 1036 pt given medication and discharged with Rx, both sons verbalized understanding and patient.
--- NOTE | 2019-02-11 10:36 | NUR ---
Patient discharged to home in stable conditon. Written and verbal after care instructions given. Patient verbalizes understanding of instructions.
[2019-02-11] MEDS ORDERED: HYDROCODONE/APAP 5-325MG TABLET ONE (10:40)
== END 2019-02-11 10:37 | disposition home or self-care (01) ==
LOC: ER 10:25
DX: B02.9 Zoster without complications (principal); I10 Essential (primary) hypertension; I25.10 Atherosclerotic heart disease of native coronary artery without angina pectoris; J44.9 Chronic obstructive pulmonary disease, unspecified; F17.200 Nicotine dependence, unspecified, uncomplicated; Z88.0 Allergy status to penicillin; Z79.2 Long term (current) use of antibiotics; Z79.899 Other long term (current) drug therapy
CPT/HCPCS: A4663

== ENCOUNTER 2019-03-07 10:03 | Emergency (ER) | payer MEDICARE, MEDICAID ==
[~2019-03-07] VITALS: Ht 152.4 cm; Wt 63.5 kg
[2019-03-07] MEDS ORDERED: ACETAMINOPHEN ES 500 MG TABLET ONE (10:21)
--- NOTE | 2019-03-07 10:24 | NUR ---
Patient discharged to home in stable conditon with son. Written and verbal after care instructions given. Patient and her son verbalized understanding of instructions. Stressed follow up with pmd. Pt and son were given extensive verbal ACI by .
[2019-03-07] MEDS ORDERED: ACETAMINOPHEN ES 500 MG TABLET PO ONE (10:30)
== END 2019-03-07 10:27 | disposition home or self-care (01) ==
LOC: ER 10:05
DX: B02.29 Other postherpetic nervous system involvement (principal); I10 Essential (primary) hypertension; I25.10 Atherosclerotic heart disease of native coronary artery without angina pectoris; J44.9 Chronic obstructive pulmonary disease, unspecified; F17.200 Nicotine dependence, unspecified, uncomplicated; Z88.0 Allergy status to penicillin; Z79.2 Long term (current) use of antibiotics; Z79.899 Other long term (current) drug therapy
CPT/HCPCS: A4663; A9150

== ENCOUNTER 2019-06-24 09:05 | Inpatient (IN) | payer MEDICARE, MEDICAID ==
[~2019-06-24] VITALS: Ht 165.1 cm; Wt 54.4 kg
--- NOTE | 2019-06-24 09:18 | NUR ---
at bedside to examine patient.
[2019-06-24] MEDS ORDERED: MECLIZINE HCL 25 MG TABLET ONE (09:23)
[2019-06-24] MEDS ORDERED: diphenhydrAMINE 50 MG/1 ML VIAL ONE (09:26)
[2019-06-24] MEDS ORDERED: METOCLOPRAMIDE HCL 10 MG/2 ML VIAL ONE (09:26)
[2019-06-24] MEDS ORDERED: diphenhydrAMINE 50 MG/1 ML VIAL IV ONE (09:30)
[2019-06-24] MEDS ORDERED: METOCLOPRAMIDE HCL 10 MG/2 ML VIAL IV ONE (09:30)
[2019-06-24] MEDS ORDERED: MECLIZINE HCL 25 MG TABLET PO ONE (09:30)
[2019-06-24 09:41] LABS: BASOPHILS % (AUTO) 0.7 % (0.0-2.0); EOSINOPHILS # (AUTO) 0.3 K/uL (0.0-0.7); EOSINOPHILS % (AUTO) 3.8 % (0.0-7.0); HEMOGLOBIN 12.4 g/dL (10.9-14.3); LYMPHOCYTES # (AUTO) 2.4 K/uL (20.0-40.0); LYMPHOCYTES % (AUTO) 34.6 % (20.5-51.5); MEAN CORPUSCULAR HEMOGLOBIN 28.6 uug (24.7-32.8); MEAN CORPUSCULAR HGB CONC 33 g/dL (32.3-35.6); MEAN CORPUSCULAR VOLUME 87.6 fL (75.5-95.3); MONOCYTES # (AUTO) 0.6 K/uL (2.0-10.0); MONOCYTES % (AUTO) 8.7 % (0.0-11.0); NEUTROPHILS # (AUTO) 3.6 K/uL (1.8-8.9); NEUTROPHILS % (AUTO) 52.2 % (38.5-71.5); PLATELET COUNT (AUTO) 208 K/uL (179-408); RED BLOOD CELL COUNT(AUTO) 4.34 MIL/uL (3.63-4.92); WHITE BLOOD COUNT (AUTO) 6.9 K/uL (3.8-11.8)
--- NOTE | 2019-06-24 09:45 | NUR ---
Patient taken down for CT.
[2019-06-24 09:50] LABS: CARBON DIOXIDE 29 mmol/L (21-32); CHLORIDE 104 mmol/L (98-107); CREATININE 1.3 mg/dL (0.6-1.3); GLUCOSE 98 mg/dL (74-106); POTASSIUM 4.4 mmol/L (3.5-5.1); UREA NITROGEN, BLOOD 24 mg/dL (7-18)
[2019-06-24 10:08] LABS: ALANINE AMINOTRANSFERASE 24 U/L (14-59); ALKALINE PHOSPHATASE 97 U/L (50-136); ASPARTATE AMINOTRANSFERASE 17 U/L (15-37); BILIRUBIN,DIRECT 0.1 mg/dL (0.0-0.2); BILIRUBIN,TOTAL 0.4 mg/dL (0.2-1.0); TOTAL PROTEIN, SERUM 7.1 g/dL (6.4-8.2)
--- NOTE | 2019-06-24 10:14 | NUR ---
Patient back from CT.
[2019-06-24] MEDS ORDERED: ASPIRIN 325 MG TABLET PO ONE (10:30)
[2019-06-24] MEDS ORDERED: ASPIRIN 325 MG TABLET ONE (10:33)
--- NOTE | 2019-06-24 10:37 | NUR ---
HR of 77, 142/47, sat 97% on RA.Pt. AAOX4.
--- NOTE | 2019-06-24 10:39 | NUR ---
A call to [facility] group for admission Dr. jonathan Flores
[2019-06-24] MEDS ORDERED: IV NS 1000 ML 1,000 ML IV ONE (10:45)
--- NOTE | 2019-06-24 10:56 | NUR ---
A call from [facility] group Dr. Adam and to report at this time.
--- NOTE | 2019-06-24 11:30 | NUR ---
Telephone report given to Lor Masterson patient will be taken up via pita, pt. AAOx4 vitals: hr 74, 148/69, saturation of 94% on RA. rr 18.
[2019-06-24 11:40] VITALS: BP 144/48
--- NOTE | 2019-06-24 11:40 | NUR ---
RECEIVED PT FROM [facility] ER VIA [facility]. PT PLACED ON TELEMETRY MONITORING WITH SINUS RHYTHM. NO ACUTE DISTRESS NOTED NO SOB NOTED. LIST OF BELONGINGS DONE BY FRUIT OR NUT FARM WORKER. PT ALERT AND ORIENTED X 3. WILL CONTINUE TO MONITOR. WILL CONTINUE WITH ADMISSION PROCESS. MEDS RECONCILED.
[2019-06-24] MEDS ORDERED: ONDANSETRON 4 MG/2 ML VIAL IV PRN (12:45)
[2019-06-24] MEDS ORDERED: ZOLPIDEM 5 MG TABLET PO PRN (12:45)
[2019-06-24] MEDS ORDERED: Z GUARD REMEDY PASTE 57 GM TUBE TOP PRN (12:45)
[2019-06-24] MEDS ORDERED: ACETAMINOPHEN 325 MG TABLET PO PRN (12:45)
[2019-06-24] MEDS ORDERED: MAGNESIUM HYDROXIDE 30 ML LIQUID UDC PO PRN (12:45)
[2019-06-24] MEDS ORDERED: ENOXAPARIN SODIUM 40 MG/0.4 ML DISP.SYRIN SQ SCH (12:45)
[2019-06-24] MEDS ORDERED: HYDROCODONE/APAP 5-325MG TABLET PO PRN (12:45)
[2019-06-24] MEDS ORDERED: hydrALAZINE HCL 20 MG/1 ML VIAL IV PRN (13:00)
[2019-06-24] MEDS: IV D5 1/2 NS 1000 ML 1,000 ML IV PRN (13:40)
[2019-06-24 15:57] VITALS: BP 142/47
[2019-06-24] MEDS: CULTURELLE CAPSULE PO SCH (16:56)
--- NOTE | 2019-06-24 18:00 | NUR ---
PT RESTING COMFORTABLY IN BED. NO SIGNS OF SOB OR ACUTE DISTRESS. CALL LIGHT WITHIN REACH. PT ALERT AND ORIENTED X 3. IV RUNNING. PT AMBULATORY. PLEASANT AND COOPERATIVE. WILL GIVE REPORT ACCORDINGLY.
[2019-06-24] MEDS ORDERED: ACETAMINOPHEN/CODEINE 300-30 MG TABLET PO PRN (19:30)
[2019-06-24] MEDS ORDERED: DIFL5DRO OP (19:55)
[2019-06-24] MEDS ORDERED: PRED5DRO16 EACHEYE (19:55)
[2019-06-24] MEDS ORDERED: NEPA1.7D OP (19:55)
[2019-06-24] MEDS ORDERED: MOXI3DRO13 OP (19:55)
[2019-06-24] MEDS ORDERED: BESI5DRO LEFTEYE (19:55)
[2019-06-24 20:08] VITALS: BP 154/50
[2019-06-24] MEDS: AMLODIPINE 5 MG TABLET PO SCH (20:38)
[2019-06-24] MEDS: ACETAMINOPHEN/CODEINE 300-30 MG TABLET PO PRN (20:39)
[2019-06-24] MEDS ORDERED: ATORVASTATIN 10 MG TABLET PO SCH (21:00)
[2019-06-24] MEDS ORDERED: ENOXAPARIN SODIUM 30 MG/0.3 ML DISP.SYRIN SUBCUT SCH (21:00)
[2019-06-25 00:40] VITALS: BP 164/67
[2019-06-25] MEDS: ACETAMINOPHEN/CODEINE 300-30 MG TABLET PO PRN ×2 (00:40→09:40)
[2019-06-25] MEDS: IV D5 1/2 NS 1000 ML 1,000 ML IV PRN (00:49)
[2019-06-25 03:56] LABS: *BILIRUBIN,URIN NEGATIVE (NEGATIVE); *BLOOD, URINE NEGATIVE (NEGATIVE); *CLARITY,URINE CLEAR (CLEAR); *COLOR,URINE YELLOW (YELLOW); *KETONES,URINE NEGATIVE (NEGATIVE); *UROBILINOGEN,URINE 0.2 E.U./dl (NORMAL); LEUKOCYTE ESTERASE ,URINE NEGATIVE (NEGATIVE); NITRITE, URINE NEGATIVE (NEGATIVE); PH,URINE 6.5 (5.0-8.0); UGLUCOSE NEGATIVE (NEGATIVE)
[2019-06-25 05:17] VITALS: BP 125/45
[2019-06-25 06:49] LABS: BASOPHILS % (AUTO) 0.5 % (0.0-2.0); EOSINOPHILS # (AUTO) 0.3 K/uL (0.0-0.7); EOSINOPHILS % (AUTO) 4.4 % (0.0-7.0); HEMATOCRIT 34.9 % (31.2-41.9); HEMOGLOBIN 11.5 g/dL (10.9-14.3); LYMPHOCYTES # (AUTO) 2.2 K/uL (20.0-40.0); MEAN CORPUSCULAR HEMOGLOBIN 28.8 uug (24.7-32.8); MEAN CORPUSCULAR HGB CONC 33 g/dL (32.3-35.6); MEAN CORPUSCULAR VOLUME 87.8 fL (75.5-95.3); MONOCYTES # (AUTO) 0.6 K/uL (2.0-10.0); MONOCYTES % (AUTO) 9.9 % (0.0-11.0); NEUTROPHILS # (AUTO) 2.7 K/uL (1.8-8.9); NEUTROPHILS % (AUTO) 47.2 % (38.5-71.5); PLATELET COUNT (AUTO) 200 K/uL (179-408); RED BLOOD CELL COUNT(AUTO) 3.97 MIL/uL (3.63-4.92); WHITE BLOOD COUNT (AUTO) 5.7 K/uL (3.8-11.8)
--- NOTE | 2019-06-25 06:55 | NUR ---
Pt resting well in between care; no acute distress; repositioned for comfort; assisted to meet hygiene needs; needs assisted; safety maintained; eye drops received and family gave it to her initially;sent to the pharmacy including [facility]; Addendum: 06/25/19 at 0657 by MICHEL DONIS RN NOT FOR THIS PT written in error
[2019-06-25 06:56] LABS: CREATININE 1.2 mg/dL (0.6-1.3); MAGNESIUM 2.3 mg/dL (1.8-2.4); PHOSPHOROUS 4.5 mg/dL (2.5-4.9); POTASSIUM 4.3 mmol/L (3.5-5.1)
--- NOTE | 2019-06-25 06:57 | NUR ---
Pt rested well in between care; no acute distress; c/o pain twice, tylenol#3 given as ordered; assisted to meet hygiene needs; continue to monitor; continue plan of care.
[2019-06-25] MEDS ORDERED: PANTOPRAZOLE SODIUM 40 MG TABLET.DR PO SCH (07:00)
[2019-06-25] MEDS ORDERED: INFLUENZA VACCINE 2019-2020 0.5 ML DISP.SYRIN IM ONE (08:00)
[2019-06-25] MEDS ORDERED: PNEUMOCOCCAL 23-VAL P-SAC VAC 0.5 ML VIAL IM ONE (08:00)
[2019-06-25] MEDS: CULTURELLE CAPSULE PO SCH (09:19)
[2019-06-25] MEDS: AMLODIPINE 5 MG TABLET PO SCH (09:20)
[2019-06-25 11:47] VITALS: BP 127/49
--- NOTE | 2019-06-25 14:00 | NUR ---
Discharge instructions given to patient. Pt verbalized understanding. Pt refused flu and pnm vaccines discussed risk and benefits. pt verbalized understanding. IV taken off. Discussed with patient to f/u with PMD within 1 week and bring discharge paperwork especially the discharge summary. Pt is in no acute distress. No new prescription. Son here to pick patient up.
[2019-06-25] MEDS ORDERED: ENOXAPARIN SODIUM 40 MG/0.4 ML DISP.SYRIN SQ SCH (21:00)
== END 2019-06-25 14:00 | disposition home or self-care (01) | DRG 305 ==
LOC: ER 09:05 → TELE3 11:03 → MEDSURG3 06-25 11:24
PROVIDERS: ADMIT Hospitalist; ATTEND Hospitalist
DX: I16.1 Hypertensive emergency (principal); I11.9 Hypertensive heart disease without heart failure; R42 Dizziness and giddiness; E78.5 Hyperlipidemia, unspecified; J44.9 Chronic obstructive pulmonary disease, unspecified; I25.10 Atherosclerotic heart disease of native coronary artery without angina pectoris; M19.042 Primary osteoarthritis, left hand; M19.041 Primary osteoarthritis, right hand; M19.012 Primary osteoarthritis, left shoulder; M19.011 Primary osteoarthritis, right shoulder; I35.0 Nonrheumatic aortic (valve) stenosis; Z79.51 Long term (current) use of inhaled steroids; Z79.899 Other long term (current) drug therapy; Z91.14 Patient's other noncompliance with medication regimen
CPT/HCPCS: 36415; 70030-TC; 70450; 71045; 83735; 84100; 85025; 85730; 90732; 93005; A4663; G0378; J1200; J1650; J2765; J3490; J7030; J8597

== ENCOUNTER 2022-09-13 11:40 | Inpatient (IN) | payer MEDICARE, OTHER ==
[~2022-09-13] VITALS: Ht 162.6 cm; Wt 65.8 kg
[~2022-09-13 11:40] MED LIST changes: -ACET-1467 PO; -AZIT250T13 PO; -METH4TAB3 PO
--- NOTE | 2022-09-13 11:40 | NUR ---
Per verbal report from paramedics of RA 88, this patient was given 100mcg of IV fentanyl enroute to ER. Patient is awake, respiration:easy, and calm at the moment.
[2022-09-13] MEDS ORDERED: TYLENOL WITH CODEINE (11:53)
--- NOTE | 2022-09-13 12:01 | NUR ---
Extra warm blankets provided. Patient is seen resting comfortably on gurney with eyes closed with SpO2 levels at 89%-95% room air.
[2022-09-13 12:26] LABS: HEMATOCRIT 35.3 % (31.2-41.9); MEAN CORPUSCULAR HEMOGLOBIN 28.6 uug (24.7-32.8); MEAN CORPUSCULAR VOLUME 87.6 fL (75.5-95.3); PLATELET COUNT (AUTO) 228 K/uL (179-408)
--- NOTE | 2022-09-13 12:37 | NUR ---
Patient wants more pain medicine. MD notified, pending orders@this time.
--- NOTE | 2022-09-13 12:46 | NUR ---
"Plan to admit" per dr Colon. ER registration/admitting staff Tiesha notified.
[2022-09-13 12:49] LABS: CREATININE 1.2 mg/dL (0.6-1.3); POTASSIUM 4.5 mmol/L (3.5-5.1)
--- NOTE | 2022-09-13 13:02 | NUR ---
Patient's son, patient & MD are discussing plan of care at this time.
--- NOTE | 2022-09-13 13:39 | NUR ---
Patient is back from radiology department in same condition, pending results.
[2022-09-13] MEDS ORDERED: HYDROCODONE/APAP 5-325MG TABLET ONE (14:55)
[2022-09-13] MEDS ORDERED: HYDROCODONE/APAP 5-325MG TABLET PO ONE (15:00)
[2022-09-13 15:18] LABS: BILIRUBIN,DIRECT 0.1 mg/dL (0.0-0.2); BILIRUBIN,TOTAL 0.4 mg/dL (0.2-1.0); TOTAL PROTEIN, SERUM 6.7 g/dL (6.4-8.2)
--- NOTE | 2022-09-13 15:23 | NUR ---
Patient and family do not want hospital inpatient admission. Patient and sons consented for ER gallbladder ultrasound then road testing with our PT department provided-walker.
[2022-09-13] MEDS ORDERED: HYDR-3974 PO (16:29)
[2022-09-13] MEDS ORDERED: NAPR-1009 PO (16:30)
--- NOTE | 2022-09-13 17:07 | NUR ---
Patient is unable to walk with walker notified.
[2022-09-13] MEDS ORDERED: REMEDY ESSENTIAL ZINC PASTE 113 GM TP PRN (17:15)
[2022-09-13] MEDS ORDERED: ONDANSETRON 4 MG/2 ML VIAL IV PRN (17:15)
[2022-09-13] MEDS ORDERED: ONDANSETRON 4 MG/2 ML VIAL IV ONE (17:15)
[2022-09-13] MEDS ORDERED: MAGNESIUM HYDROXIDE 30 ML LIQUID UDC PO PRN (17:15)
[2022-09-13] MEDS ORDERED: IV NS 1000 ML 1,000 ML IV PRN (17:15)
[2022-09-13] MEDS ORDERED: MORPHINE SULFATE 4 MG/1 ML DISP.SYRIN IV ONE (17:15)
[2022-09-13] MEDS ORDERED: ACETAMINOPHEN 325 MG TABLET PO PRN (17:15)
--- NOTE | 2022-09-13 17:17 | NUR ---
CLAUS Delaney is in ER department & is talking to our ER doctor.
--- NOTE | 2022-09-13 17:18 | NUR ---
Patient and sons still do not want inpatient hospital admission and this patient is attempting another road testing again with a walker.
--- NOTE | 2022-09-13 17:38 | NUR ---
Patient and sons are now consenting to inpatient admission, MD notified. Room 301 was given by 3rd floor staff Maylin but there are no nurse available to accept this patient at this time. "After change of shift, we may have a nurse." per Maylin.
[2022-09-13] MEDS: ENOXAPARIN SODIUM 40 MG/0.4 ML DISP.SYRIN SQ SCH ×2 (18:04→18:21)
--- NOTE | 2022-09-13 18:48 | NUR ---
Patient is resting comfortably on gurney with eyes closed. Patient's son is at bedside, pending medical-surgical nurse & bed at this time.
--- NOTE | 2022-09-13 19:18 | NUR ---
I attempted to give nursing report (to 3rd floor medical-surgical floor) multiple times, unsuccessful. "It is change of shift. We don't even know who will take this patient." per 3rd floor staff Maylin. Nursing SBAR were given to ER staff nurses:Andria and brass molder helper Juan Manuel.
--- NOTE | 2022-09-13 19:38 | NUR ---
Patient has been admitted to third floor medsurg Room 301
--- NOTE | 2022-09-13 21:55 | NUR ---
Report given to Deshawn DEE
--- NOTE | 2022-09-13 22:00 | NUR ---
Received Pt from ER at approximately 1945 and got report from Andria PARKER) at approximately 2154. Pt is A&Ox4 and was in pain, but cooperative. Pt's SpO2 was saturating at around 85%. Administered O2 3L via NC. Saturation increased to 92%. Pt's skin is intact. Pt has IV on L.AC 20G. Safety measures in place. Will continue to monitor. Addendum: 09/14/22 at 0509 by ENMA CRUZ RN Received Pt from ER at approximately 2014.*
[2022-09-13] MEDS: HYDROCODONE/APAP 5-325MG TABLET PO PRN (22:09)
[2022-09-14] MEDS: HYDROCODONE/APAP 5-325MG TABLET PO PRN ×4 (02:10→21:17)
--- NOTE | 2022-09-14 06:51 | NUR ---
End of Shift Note: Pt is A&Ox4 and was in pain, but cooperative. Pt on O2 3L via NC. Pt's skin is intact. Pt has IV on L.AC 20G. Safety measures in place. Will continue to monitor.
[2022-09-14 08:07] LABS: HEMATOCRIT 37.3 % (31.2-41.9); MEAN CORPUSCULAR HEMOGLOBIN 29.1 uug (24.7-32.8); MEAN CORPUSCULAR VOLUME 87.6 fL (75.5-95.3); PLATELET COUNT (AUTO) 215 K/uL (179-408)
[2022-09-14 08:12] LABS: CREATININE 1.2 mg/dL (0.6-1.3); MAGNESIUM 2.2 mg/dL (1.8-2.4); PHOSPHOROUS 4.4 mg/dL (2.5-4.9); POTASSIUM 4.7 mmol/L (3.5-5.1)
[2022-09-14] MEDS: ENOXAPARIN SODIUM 40 MG/0.4 ML DISP.SYRIN SQ SCH (09:24)
[2022-09-14 10:59] VITALS: BP 137/48
[2022-09-14] MEDS ORDERED: CYCLOBENZAPRINE HCL 10 MG TABLET PO PRN (13:30)
[2022-09-14] MEDS ORDERED: CYCLOBENZAPRINE HCL 10 MG TABLET PO ONE (13:45)
[2022-09-14] MEDS ORDERED: KETOROLAC TROMETHAMINE 15 MG INJ IVP ONE (14:00)
[2022-09-14 15:24] VITALS: BP 148/53
[2022-09-14] MEDS: DOCUSATE SODIUM 100 MG CAPSULE PO SCH ×2 (15:25→20:57)
[2022-09-14] MEDS ORDERED: ACET1TAB23 PO (16:17)
[2022-09-14] MEDS ORDERED: FLUT1BLS IH (16:17)
--- NOTE | 2022-09-14 18:51 | NUR ---
[place] given due to complaint of pain. Patient bedbound but able to move arms. Skin intact. Left AC 20g with no fluids running. Patient on three liters of oxygen. She is calm and relaxed at this time. She is resting comfortably current. Will continue to monitor.
[2022-09-14 20:31] VITALS: BP 137/44
[2022-09-15] MEDS: MORPHINE SULFATE 2 MG/1 ML DISP.SYRIN IV PRN ×2 (04:05→14:37)
[2022-09-15 05:39] VITALS: BP 141/54
[2022-09-15 07:59] LABS: HEMATOCRIT 36.3 % (31.2-41.9); MEAN CORPUSCULAR HEMOGLOBIN 28.5 uug (24.7-32.8); MEAN CORPUSCULAR VOLUME 88.3 fL (75.5-95.3); PLATELET COUNT (AUTO) 206 K/uL (179-408)
[2022-09-15] MEDS: KETOROLAC TROMETHAMINE 15 MG INJ IVP PRN ×2 (08:01→16:52)
[2022-09-15] MEDS: HYDROCODONE/APAP 5-325MG TABLET PO PRN ×2 (08:01→13:31)
[2022-09-15] MEDS: DOCUSATE SODIUM 100 MG CAPSULE PO SCH (08:15)
[2022-09-15] MEDS: ENOXAPARIN SODIUM 40 MG/0.4 ML DISP.SYRIN SQ SCH (08:20)
[2022-09-15 08:25] VITALS: BP 169/59
[2022-09-15 08:36] LABS: CREATININE 1.2 mg/dL (0.6-1.3); MAGNESIUM 2.2 mg/dL (1.8-2.4); PHOSPHOROUS 3.9 mg/dL (2.5-4.9); POTASSIUM 4.3 mmol/L (3.5-5.1)
[2022-09-15 12:00] VITALS: BP 166/66
[2022-09-15] MEDS ORDERED: AMLODIPINE 5 MG TABLET PO SCH (14:00)
[2022-09-15 16:00] VITALS: BP 152/52
--- NOTE | 2022-09-15 16:02 | NUR ---
both foster care case manager and Physical Therapy spoke to the patient and son on the phone about their recommendations of admitting for rehab however patient states she wants to go home and son also refuses to continue care with rehabilitation. He insists that she can do PT at home and will be taken her home. At this time discharge order made and will be going home.
== END 2022-09-15 19:19 | disposition home or self-care (01) | DRG 552 ==
LOC: ER 11:42 → MEDSURG3 18:01 → MED 09-15 07:30
PROVIDERS: ADMIT Nurse Practitioner Acute Care; ATTEND Nurse Practitioner Acute Care
DX: M54.42 Lumbago with sciatica, left side (principal); E44.1 Mild protein-calorie malnutrition; D68.69 Other thrombophilia; E78.5 Hyperlipidemia, unspecified; E86.0 Dehydration; I10 Essential (primary) hypertension; K83.8 Other specified diseases of biliary tract; Z20.822 Contact with and (suspected) exposure to COVID-19; I25.10 Atherosclerotic heart disease of native coronary artery without angina pectoris; J44.9 Chronic obstructive pulmonary disease, unspecified; E88.09 Other disorders of plasma-protein metabolism, not elsewhere classified; Z74.09 Other reduced mobility; R91.8 Other nonspecific abnormal finding of lung field; W18.30XA Fall on same level, unspecified, initial encounter; Y93.9 Activity, unspecified; Y92.009 Unspecified place in unspecified non-institutional (private) residence as the place of occurrence of the external cause; Z68.24 Body mass index [BMI] 24.0-24.9, adult
CPT/HCPCS: 36415; 71045; 72131; 83735; 84100; 85025; 85730; 93005; A4663; A6209; G0378; J1650; J1885; J2270; J2405; J7040

== ENCOUNTER 2022-09-15 18:02 | Inpatient (IN) | payer MEDICARE, OTHER ==
[~2022-09-15] VITALS: Ht 162.6 cm; Wt 65.8 kg
[~2022-09-15 18:02] MED LIST changes: +ACET1TAB23 PO; -ATOR10TA PO; -BUDE10.22 INH; +FLUT1BLS IH; -LACT1CAP57 PO; -TIOT18CA3 IH
--- NOTE | 2022-09-15 21:00 | NUR ---
Received admission report from LUIZ Jesus. Patient arrived in the unit via bed, accompanied by 2 RN's from second floor. Awake, not in distress with continuos O2 at 2L/min via NC, saturating 97%. Routine admission care done. Plan of care initiated. VS taken and recorded. Safety precaution and fall prevention initiated, Oriented to floor, staff, use of call light, bed control, TV remote and telephone.
[2022-09-15] MEDS: REMEDY ESSENTIAL ZINC PASTE 113 GM TOP SCH (21:16)
[2022-09-15 21:33] VITALS: BP 125/62
[2022-09-16] MEDS: ACETAMINOPHEN/CODEINE 300-30 MG TABLET PO PRN ×3 (03:39→11:54)
[2022-09-16 05:47] VITALS: BP 118/67
--- NOTE | 2022-09-16 06:25 | NUR ---
Shift End Report: Medicated once for lower back pain with relief. No further complaint presented. Patient very uncooperative, anxious, and irritable. She always ask for pain medication, try to get up, moves to much in bed that causing her more pain. Explained to patient that Tylenol #3 was ordered 5x a day not every hour. Will endorse to oncoming nurse.
--- NOTE | 2022-09-16 07:25 | NUR ---
Received report from LUIZ Jane. Pt stable, asleep in bed. no s/s of distress noted. Bed in lowest position, bed alarm on, call light within reach.
[2022-09-16 07:59] VITALS: BP 163/59
[2022-09-16] MEDS: REMEDY ESSENTIAL ZINC PASTE 113 GM TOP SCH ×2 (08:12→20:42)
[2022-09-16] MEDS ORDERED: AMLODIPINE 5 MG TABLET PO ONE (09:00)
[2022-09-16] MEDS ORDERED: AMLODIPINE 5 MG TABLET PO SCH (09:00)
[2022-09-16] MEDS: FLUTICASONE/VILANTEROL 1 EACH BLST.W.DEV IH SCH (09:00)
--- NOTE | 2022-09-16 10:26 | NUR ---
INTERDISCIPLINARY TEAM CONFERENCE
--- NOTE | 2022-09-16 11:00 | NUR ---
Pt c/o 18/06 pain in her whole back. Given Tylenol with codeine. Pt still c/o 06/[address] Hilario requesting additional pain meds and Ativan prn. said that he will be in around noon today.
[2022-09-16] MEDS ORDERED: KETOROLAC TROMETHAMINE 30 MG INJ IVP ONE (13:00)
[2022-09-16] MEDS: METHOCARBAMOL 500 MG TABLET PO SCH ×2 (13:48→16:55)
[2022-09-16] MEDS: DEXAMETHASONE SOD PHOSPHATE 10 MG INJ IV SCH ×2 (15:00→21:15)
[2022-09-16 16:00] VITALS: BP 95/56
[2022-09-16] MEDS: OXYCODONE HCL 5 MG TABLET PO PRN (16:59)
--- NOTE | 2022-09-16 19:23 | NUR ---
Endorsed pt to maintenance technician 3rd shift RN, pt stable, no s/s of distress noted.
[2022-09-16 20:00] VITALS: BP 145/60
[2022-09-16] MEDS: IBUPROFEN 400 MG TABLET PO SCH (20:33)
[2022-09-16] MEDS: AMLODIPINE 5 MG TABLET PO SCH (20:34)
[2022-09-17] MEDS: OXYCODONE HCL 5 MG TABLET PO PRN ×3 (03:41→20:25)
--- NOTE | 2022-09-17 04:24 | NUR ---
AAOx4 All needs attended. All due meds given as ordered. Tolerated well. Incontinent of bowel and bladder. Kept comfortable. Medicated for pain as ordered with relief noted. Back brace on at all times. No acute distress noted. VSS.
[2022-09-17 05:02] VITALS: BP 148/61
[2022-09-17] MEDS: DEXAMETHASONE SOD PHOSPHATE 10 MG INJ IV SCH ×3 (05:09→21:32)
[2022-09-17 07:45] VITALS: BP 149/63
[2022-09-17] MEDS: METHOCARBAMOL 500 MG TABLET PO SCH ×3 (08:21→16:38)
[2022-09-17] MEDS: AMLODIPINE 5 MG TABLET PO SCH ×2 (08:22→20:25)
[2022-09-17] MEDS: FLUTICASONE/VILANTEROL 1 EACH BLST.W.DEV IH SCH (08:22)
[2022-09-17] MEDS: IBUPROFEN 400 MG TABLET PO SCH ×2 (08:23→17:05)
[2022-09-17] MEDS: REMEDY ESSENTIAL ZINC PASTE 113 GM TOP SCH ×2 (08:23→20:25)
[2022-09-17 15:51] VITALS: BP 146/58
[2022-09-17 20:04] VITALS: BP 148/55
[2022-09-18] MEDS: OXYCODONE HCL 5 MG TABLET PO PRN ×3 (02:17→16:24)
--- NOTE | 2022-09-18 04:53 | NUR ---
AAOx 4 Needs attended. VSS. Patient incontinent of urine x2 Kept clean and dry. Medicated for pain as needed. Tolerated well. OOB to the BR with walker with supervision. BM noted this shift. All needs attended. Kept comfortable.Siderails up for safety.
[2022-09-18 05:12] VITALS: BP 146/60
[2022-09-18] MEDS: DEXAMETHASONE SOD PHOSPHATE 10 MG INJ IV SCH ×3 (05:16→21:20)
[2022-09-18] MEDS: IBUPROFEN 400 MG TABLET PO SCH ×2 (08:30→17:11)
[2022-09-18] MEDS: METHOCARBAMOL 500 MG TABLET PO SCH (08:30)
[2022-09-18] MEDS: FLUTICASONE/VILANTEROL 1 EACH BLST.W.DEV IH SCH (08:30)
[2022-09-18] MEDS: AMLODIPINE 5 MG TABLET PO SCH ×2 (08:30→20:11)
[2022-09-18] MEDS: REMEDY ESSENTIAL ZINC PASTE 113 GM TOP SCH ×2 (08:30→20:11)
--- NOTE | 2022-09-18 14:19 | NUR ---
INDIVIDUALIZED PLAN OF CARE
[2022-09-18] MEDS: ENSURE ENLIVE (VAN) 240 ML LIQUID PO SCH (15:06)
[2022-09-18 15:49] VITALS: BP 163/63
[2022-09-18 20:00] VITALS: BP 148/62
[2022-09-18] MEDS: MORPHINE SULFATE SR 15 MG TABLET.SA PO SCH (20:11)
--- NOTE | 2022-09-18 23:00 | NUR ---
1915-Patient in bed, AWAKE, AOx4, VERBALIZES NEEDS AND FOLLOWS DIRECTIONS. NO PHYSICAL OR RESPIRATORY DISTRESS NOTED.The patient has a patent IV that is clean, dry, and intact. SAFETY MEASURES AND CALL LIGHT AT REACH, bed at lowest position, wheels lock, and two side rails up, bed alarm on. ORAL FLUIDS OFFERED YOKO. AND TAKEN WELL. Will continue to monitor throughout the shift. 2100- The patient is awake and watching television. The patient has no signs of distress, or sob. The patient request for an extra pillow. Item is given to the patient. Will continue to monitor throughout the shift. 0200- The patient has no complains of pain. The patient has no signs of distress. Changed the patient. Will continue to monitor throughout the shift.
[2022-09-19 05:00] VITALS: BP 139/64
[2022-09-19] MEDS: DEXAMETHASONE SOD PHOSPHATE 10 MG INJ IV SCH ×3 (06:36→21:40)
[2022-09-19 07:41] VITALS: BP 154/65
[2022-09-19] MEDS: MORPHINE SULFATE SR 15 MG TABLET.SA PO SCH ×2 (09:13→20:01)
[2022-09-19] MEDS: LIDOCAINE 5% PATCH TD SCH (09:14)
[2022-09-19] MEDS: REMEDY ESSENTIAL ZINC PASTE 113 GM TOP SCH ×2 (09:14→20:04)
[2022-09-19] MEDS: ENSURE ENLIVE (VAN) 240 ML LIQUID PO SCH (09:14)
[2022-09-19] MEDS: AMLODIPINE 5 MG TABLET PO SCH ×2 (09:14→20:04)
[2022-09-19] MEDS: FLUTICASONE/VILANTEROL 1 EACH BLST.W.DEV IH SCH (09:14)
[2022-09-19] MEDS: IBUPROFEN 400 MG TABLET PO SCH ×2 (09:17→17:49)
[2022-09-19] MEDS: OXYCODONE HCL 5 MG TABLET PO PRN ×2 (10:38→17:57)
[2022-09-19] MEDS: CALCITONIN,SALMON,SYNTHETIC 3.7 ML SPRAY.PUMP NS SCH (12:57)
[2022-09-19] MEDS: CALCIUM CARB/VITAMIN D 600-400 MG TABLET PO SCH ×2 (12:57→20:04)
[2022-09-19 15:06] VITALS: BP 120/44
--- NOTE | 2022-09-19 16:13 | NUR ---
tlso brace ordered and brought in from company. bank representative adjusted the brace to the pt body. it is to be used at all times when she is out of bed. son was also given inservice by physical therapist on how to apply the brace. he verbalized understanding
--- NOTE | 2022-09-19 19:41 | NUR ---
NSG: Received patient AAOx 4 VSS. Patient incontinent of urine. OOB to the BR with walker with supervision. no c/o pain or discomfort at this time. Siderails up for safety. call light w/in reach
[2022-09-19 20:00] VITALS: BP 144/81
[2022-09-19 20:29] VITALS: BP 144/81
--- NOTE | 2022-09-20 00:35 | NUR ---
nsg: patient is resting in bed comfortably. no c/o pain or discomfort at this time.call light w/in reach.
[2022-09-20 04:16] VITALS: BP 124/52
[2022-09-20] MEDS: DEXAMETHASONE SOD PHOSPHATE 10 MG INJ IV SCH ×3 (05:51→22:19)
--- NOTE | 2022-09-20 06:16 | NUR ---
nsg: patient remain calm and cooperative with meds and care. no c/o pain or discomfort at this time. resting in bed comfortably. call light w/in reach.
[2022-09-20 07:32] VITALS: BP 146/65
[2022-09-20] MEDS: MORPHINE SULFATE SR 15 MG TABLET.SA PO SCH ×2 (08:22→21:08)
[2022-09-20] MEDS: OXYCODONE HCL 5 MG TABLET PO PRN ×2 (09:12→18:00)
[2022-09-20] MEDS: IBUPROFEN 400 MG TABLET PO SCH ×2 (09:12→18:00)
[2022-09-20] MEDS: FLUTICASONE/VILANTEROL 1 EACH BLST.W.DEV IH SCH (09:13)
[2022-09-20] MEDS: AMLODIPINE 5 MG TABLET PO SCH ×2 (09:13→21:00)
[2022-09-20] MEDS: CALCITONIN,SALMON,SYNTHETIC 3.7 ML SPRAY.PUMP NS SCH (09:13)
[2022-09-20] MEDS: CALCIUM CARB/VITAMIN D 600-400 MG TABLET PO SCH ×2 (09:13→21:08)
[2022-09-20] MEDS: ENSURE ENLIVE (VAN) 240 ML LIQUID PO SCH (09:13)
[2022-09-20] MEDS: LIDOCAINE 5% PATCH TD SCH (09:14)
[2022-09-20] MEDS: REMEDY ESSENTIAL ZINC PASTE 113 GM TOP SCH ×2 (09:14→21:09)
[2022-09-20 15:25] VITALS: BP 131/58
[2022-09-20 20:00] VITALS: BP 129/73
[2022-09-21] MEDS: DEXAMETHASONE SOD PHOSPHATE 10 MG INJ IV SCH ×3 (05:58→22:48)
[2022-09-21 07:05] VITALS: BP 136/55
[2022-09-21] MEDS: CALCIUM CARB/VITAMIN D 600-400 MG TABLET PO SCH ×2 (08:49→20:45)
[2022-09-21] MEDS: IBUPROFEN 400 MG TABLET PO SCH ×2 (08:49→17:11)
[2022-09-21] MEDS: MORPHINE SULFATE SR 15 MG TABLET.SA PO SCH ×2 (08:49→20:46)
[2022-09-21 08:50] VITALS: BP 158/56
[2022-09-21] MEDS: AMLODIPINE 5 MG TABLET PO SCH ×2 (08:50→20:46)
[2022-09-21] MEDS: LIDOCAINE 5% PATCH TD SCH (08:50)
[2022-09-21] MEDS: FLUTICASONE/VILANTEROL 1 EACH BLST.W.DEV IH SCH (08:50)
[2022-09-21] MEDS: REMEDY ESSENTIAL ZINC PASTE 113 GM TOP SCH ×2 (08:51→20:46)
[2022-09-21] MEDS: ENSURE ENLIVE (VAN) 240 ML LIQUID PO SCH (08:51)
[2022-09-21] MEDS: CALCITONIN,SALMON,SYNTHETIC 3.7 ML SPRAY.PUMP NS SCH (08:51)
[2022-09-21] MEDS: OXYCODONE HCL 5 MG TABLET PO PRN (13:24)
[2022-09-21 16:06] VITALS: BP 149/51
--- NOTE | 2022-09-21 19:40 | NUR ---
RECEIVED REPORT FROM ALMA COHN SHIFT RN. PATIENT IS ALERT & ORIENTED X4, AND ABLE TO SPEAK MAORI. VITAL SIGNS STABLE. PATIENT TOLERATES PO & IV MEDICATIONS AND DIET. HOWEVER PATIENT STATES: "I'M VERY PICKY ABOUT MY DIET" AND REFUSES SOME MEALS. RN PROVIDED SNACKS TO HELP SUPPLEMENT. PATIENT VOIDS ADEQUATELY. PARTICIPATES WITH PHYSICAL AND OCCUPATIONAL THERAPY SCHEDULED. PATIENT HAD COMPLAINT OF PAIN. RN MANAGED PAIN WITH MEDICATIONS ORDERED BY MD. NO ACUTE DISTRESS NOTED. FALL PRECAUTIONS IN PLACE. ALL NEEDS MET AT THIS TIME. ENDORSED CARE TO ALMA COHN RN, FOR CONTINUATION OF CARE.
[2022-09-21 20:00] VITALS: BP 142/57
[2022-09-22 04:00] VITALS: BP 122/58
[2022-09-22] MEDS: DEXAMETHASONE SOD PHOSPHATE 10 MG INJ IV SCH ×3 (06:15→23:32)
[2022-09-22 08:00] VITALS: BP 146/53
[2022-09-22] MEDS: IBUPROFEN 400 MG TABLET PO SCH ×2 (08:02→17:27)
[2022-09-22] MEDS: MORPHINE SULFATE SR 15 MG TABLET.SA PO SCH ×2 (08:26→20:22)
[2022-09-22] MEDS: CALCIUM CARB/VITAMIN D 600-400 MG TABLET PO SCH ×2 (08:26→20:22)
[2022-09-22] MEDS: FLUTICASONE/VILANTEROL 1 EACH BLST.W.DEV IH SCH (08:26)
[2022-09-22] MEDS: CALCITONIN,SALMON,SYNTHETIC 3.7 ML SPRAY.PUMP NS SCH (08:27)
[2022-09-22] MEDS: REMEDY ESSENTIAL ZINC PASTE 113 GM TOP SCH ×2 (08:28→20:26)
[2022-09-22] MEDS: LIDOCAINE 5% PATCH TD SCH (08:28)
[2022-09-22] MEDS: AMLODIPINE 5 MG TABLET PO SCH ×2 (08:29→20:26)
[2022-09-22] MEDS: ENSURE ENLIVE (VAN) 240 ML LIQUID PO SCH (09:40)
[2022-09-22 16:00] VITALS: BP 125/53
--- NOTE | 2022-09-22 16:21 | NUR ---
0730-Rec'd in bed, patient alert, denies pain. On R/A, no respiratory distress noted. PIV to RT FA infusing well. Call light within reach. 0900-Scheduled medication administered with no ASE noted. Oral fluids taken well.
--- NOTE | 2022-09-22 18:47 | NUR ---
Patient in good stable conditions. No changes from her baseline. Extensive assist provided with ADLS/as needed. Patient compliant with her care/staff and treatment. A couple of siblings visited patient during shift.
[2022-09-22 20:00] VITALS: BP 145/56
[2022-09-23] MEDS: DEXAMETHASONE SOD PHOSPHATE 10 MG INJ IV SCH ×3 (05:40→21:06)
[2022-09-23 05:49] VITALS: BP 135/57
[2022-09-23] MEDS: IBUPROFEN 400 MG TABLET PO SCH ×2 (07:42→17:39)
[2022-09-23 08:00] VITALS: BP 139/55
[2022-09-23] MEDS: CALCIUM CARB/VITAMIN D 600-400 MG TABLET PO SCH ×2 (08:14→20:04)
[2022-09-23] MEDS: MORPHINE SULFATE SR 15 MG TABLET.SA PO SCH ×2 (08:16→20:04)
[2022-09-23] MEDS: AMLODIPINE 5 MG TABLET PO SCH ×2 (08:16→20:04)
[2022-09-23] MEDS: FLUTICASONE/VILANTEROL 1 EACH BLST.W.DEV IH SCH (08:16)
[2022-09-23] MEDS: LIDOCAINE 5% PATCH TD SCH (08:17)
[2022-09-23] MEDS: CALCITONIN,SALMON,SYNTHETIC 3.7 ML SPRAY.PUMP NS SCH (08:17)
[2022-09-23] MEDS: REMEDY ESSENTIAL ZINC PASTE 113 GM TOP SCH ×2 (08:19→20:04)
[2022-09-23] MEDS: ENSURE ENLIVE (VAN) 240 ML LIQUID PO SCH (09:23)
--- NOTE | 2022-09-23 10:48 | NUR ---
0730-Rec'd patient in bed awake, VSS, denies pain. No resp. distress noted, oral fluids offered and taken well. Safety measures in place and call light at reach & encouraged to use it every time help is needed. 0900-scheduled medication/routine pain medication administered as ordered with no ASE noted. Oral fluids taken well. Will monitor.
--- NOTE | 2022-09-23 14:32 | NUR ---
INTERDISCIPLINARY TEAM CONFERENCE
[2022-09-23 16:00] VITALS: BP 137/55
--- NOTE | 2022-09-23 19:06 | NUR ---
Patient in usual stable conditions. No changes noted during shift. Assisted with ADLS and at all times. Patient actively participated in therapy yves. well. Assisted to the restroom/bed cooper as needed. All meeds anticipated and met.
[2022-09-23 20:00] VITALS: BP 107/49
[2022-09-24 04:00] VITALS: BP 133/46
[2022-09-24] MEDS: DEXAMETHASONE SOD PHOSPHATE 10 MG INJ IV SCH ×3 (05:26→21:23)
[2022-09-24] MEDS: OXYCODONE HCL 5 MG TABLET PO PRN (05:32)
[2022-09-24] MEDS: IBUPROFEN 400 MG TABLET PO SCH ×2 (07:49→17:28)
[2022-09-24 07:59] VITALS: BP 132/51
[2022-09-24] MEDS: FLUTICASONE/VILANTEROL 1 EACH BLST.W.DEV IH SCH (09:32)
[2022-09-24] MEDS: MORPHINE SULFATE SR 15 MG TABLET.SA PO SCH ×2 (09:32→20:04)
[2022-09-24] MEDS: CALCITONIN,SALMON,SYNTHETIC 3.7 ML SPRAY.PUMP NS SCH (09:33)
[2022-09-24] MEDS: CALCIUM CARB/VITAMIN D 600-400 MG TABLET PO SCH ×2 (09:33→20:03)
[2022-09-24] MEDS: AMLODIPINE 5 MG TABLET PO SCH ×2 (09:46→20:05)
[2022-09-24] MEDS: LIDOCAINE 5% PATCH TD SCH (09:47)
[2022-09-24] MEDS: REMEDY ESSENTIAL ZINC PASTE 113 GM TOP SCH ×2 (09:47→20:05)
[2022-09-24] MEDS: ENSURE ENLIVE (VAN) 240 ML LIQUID PO SCH ×3 (09:47→17:17)
[2022-09-24] MEDS ORDERED: ENSURE ENLIVE (VAN) 240 ML LIQUID PO SCH (14:45)
[2022-09-24 15:49] VITALS: BP 138/55
[2022-09-24 20:00] VITALS: BP 133/55
[2022-09-25 04:54] VITALS: BP 126/61
[2022-09-25] MEDS: DEXAMETHASONE SOD PHOSPHATE 10 MG INJ IV SCH ×3 (05:20→21:23)
[2022-09-25 06:44] LABS: HEMATOCRIT 37.1 % (31.2-41.9); MEAN CORPUSCULAR HEMOGLOBIN 28.5 uug (24.7-32.8); MEAN CORPUSCULAR VOLUME 85.5 fL (75.5-95.3); PLATELET COUNT (AUTO) 380 K/uL (179-408)
[2022-09-25 07:28] LABS: ALANINE AMINOTRANSFERASE 33 U/L (14-59); ALKALINE PHOSPHATASE 74 U/L (50-136); ASPARTATE AMINOTRANSFERASE 25 U/L (15-37); BILIRUBIN,TOTAL 0.4 mg/dL (0.2-1.0); CARBON DIOXIDE 27 mmol/L (21-32); CHLORIDE 95 mmol/L (98-107); CREATININE 1.4 mg/dL (0.6-1.3); GLUCOSE 115 mg/dL (74-106); MAGNESIUM 2.4 mg/dL (1.8-2.4); PHOSPHOROUS 3.2 mg/dL (2.5-4.9); POTASSIUM 5.1 mmol/L (3.5-5.1); TOTAL PROTEIN, SERUM 6.1 g/dL (6.4-8.2); UREA NITROGEN, BLOOD 58 mg/dL (7-18)
[2022-09-25] MEDS: IBUPROFEN 400 MG TABLET PO SCH ×2 (08:00→16:40)
[2022-09-25 08:03] VITALS: BP 120/51
[2022-09-25] MEDS: MORPHINE SULFATE SR 15 MG TABLET.SA PO SCH ×2 (09:00→20:41)
[2022-09-25] MEDS: CALCIUM CARB/VITAMIN D 600-400 MG TABLET PO SCH ×2 (09:01→20:41)
[2022-09-25] MEDS: ENSURE ENLIVE (VAN) 240 ML LIQUID PO SCH ×2 (09:01→16:40)
[2022-09-25] MEDS: LIDOCAINE 5% PATCH TD SCH (09:02)
[2022-09-25] MEDS: AMLODIPINE 5 MG TABLET PO SCH ×2 (09:02→20:42)
[2022-09-25] MEDS: REMEDY ESSENTIAL ZINC PASTE 113 GM TOP SCH ×2 (09:03→20:42)
[2022-09-25] MEDS: FLUTICASONE/VILANTEROL 1 EACH BLST.W.DEV IH SCH (09:03)
[2022-09-25] MEDS: CALCITONIN,SALMON,SYNTHETIC 3.7 ML SPRAY.PUMP NS SCH (10:00)
[2022-09-25 12:00] VITALS: BP 142/84
[2022-09-25 15:55] VITALS: BP 131/54
--- NOTE | 2022-09-25 16:41 | NUR ---
refused motrin c/o abdominal pain. she thinks is being cause by motrin
[2022-09-25] MEDS: OXYCODONE HCL 5 MG TABLET PO PRN (19:16)
[2022-09-25 20:00] VITALS: BP 146/58
--- NOTE | 2022-09-26 03:57 | NUR ---
Condition unchanged. AAOx3-4 All needs attended. VSS Kept comfortable. Incontinent of bowel and bladder. Medicated for pain as needed. Tolerated well. No ill effects noted. Kept clean and dry. No acute distress noted. Will monitor patient.Siderails up for safety.
[2022-09-26 04:00] VITALS: BP 131/65
[2022-09-26] MEDS: DEXAMETHASONE SOD PHOSPHATE 10 MG INJ IV SCH ×3 (05:13→21:26)
[2022-09-26] MEDS: CALCIUM CARB/VITAMIN D 600-400 MG TABLET PO SCH ×2 (08:34→20:51)
[2022-09-26] MEDS: ENSURE ENLIVE (VAN) 240 ML LIQUID PO SCH ×2 (08:34→17:14)
[2022-09-26] MEDS: IBUPROFEN 400 MG TABLET PO SCH ×3 (08:34→18:00)
[2022-09-26] MEDS: MORPHINE SULFATE SR 15 MG TABLET.SA PO SCH ×2 (08:36→20:51)
[2022-09-26] MEDS: FLUTICASONE/VILANTEROL 1 EACH BLST.W.DEV IH SCH (08:38)
[2022-09-26] MEDS: LIDOCAINE 5% PATCH TD SCH (08:38)
[2022-09-26] MEDS: AMLODIPINE 5 MG TABLET PO SCH ×2 (08:38→20:55)
[2022-09-26] MEDS: REMEDY ESSENTIAL ZINC PASTE 113 GM TOP SCH ×2 (08:46→20:56)
[2022-09-26 08:56] VITALS: BP 146/47
[2022-09-26] MEDS: CALCITONIN,SALMON,SYNTHETIC 3.7 ML SPRAY.PUMP NS SCH (09:33)
--- NOTE | 2022-09-26 14:22 | NUR ---
Pt c/o abdominal pain and discomfort this morning. Pt declined her Motrin, thinking that might be the cause. Now pt says that her abdominal pain is gone. Pt plans to deline her next Motrin. Will continue to monitor.
[2022-09-26 16:26] VITALS: BP 146/55
[2022-09-26] MEDS: OXYCODONE HCL 5 MG TABLET PO PRN (18:36)
--- NOTE | 2022-09-26 19:24 | NUR ---
Endorsed pt to jitendra Jesus RN. Pt stable, no s/s of distress noted, no SOB.
[2022-09-26 20:47] VITALS: BP 115/53
[2022-09-27 04:08] VITALS: BP 138/51
--- NOTE | 2022-09-27 04:54 | NUR ---
Condition unchanged. AAOx4 VSS Needs attended. All due meds given without difficulty. VSS. Denies any pain nor any discomfort. Incontinent of bowel and bladder. Kept clean and dry. No BM noted this shift. Slept well throughout the night.
[2022-09-27] MEDS: DEXAMETHASONE SOD PHOSPHATE 10 MG INJ IV SCH ×3 (05:21→21:28)
[2022-09-27 07:33] VITALS: BP 143/53
[2022-09-27] MEDS: MORPHINE SULFATE SR 15 MG TABLET.SA PO SCH ×2 (08:24→20:10)
[2022-09-27] MEDS: IBUPROFEN 400 MG TABLET PO SCH (08:24)
[2022-09-27] MEDS: CALCIUM CARB/VITAMIN D 600-400 MG TABLET PO SCH ×2 (08:24→20:10)
[2022-09-27] MEDS: FLUTICASONE/VILANTEROL 1 EACH BLST.W.DEV IH SCH (08:25)
[2022-09-27] MEDS: CALCITONIN,SALMON,SYNTHETIC 3.7 ML SPRAY.PUMP NS SCH (08:25)
[2022-09-27] MEDS: LIDOCAINE 5% PATCH TD SCH (08:26)
[2022-09-27] MEDS: REMEDY ESSENTIAL ZINC PASTE 113 GM TOP SCH ×2 (08:27→20:11)
[2022-09-27] MEDS: ENSURE ENLIVE (VAN) 240 ML LIQUID PO SCH ×2 (08:28→17:29)
[2022-09-27] MEDS: AMLODIPINE 5 MG TABLET PO SCH ×2 (08:31→20:11)
[2022-09-27 15:44] VITALS: BP 137/50
--- NOTE | 2022-09-27 19:32 | NUR ---
RECEIVED REPORT FROM ALMA GREENE RN. PATIENT IS ALERT & ORIENTED X4, AND ABLE TO SPEAK [place]. VITAL SIGNS STABLE. PATIENT TOLERATES PO & IV MEDICATIONS AND DIET. PATIENT VOIDS ADEQUATELY. PARTICIPATES WITH PHYSICAL AND OCCUPATIONAL THERAPY SCHEDULED. PATIENT HAD COMPLAINT OF PAIN. RN MANAGED PAIN WITH MEDICATIONS ORDERED BY MD. NO ACUTE DISTRESS NOTED. PATIENT BECAME ANXIOUS WHEN WAITER/WAITRESS CAFETERIA CAME TO SEE HER. RN REASSURED PATIENT, AND PATIENT CALMER. FALL PRECAUTIONS IN PLACE. ALL NEEDS MET AT THIS TIME. ENDORSED CARE TO ALMA CHON RN, FOR CONTINUATION OF CARE.
[2022-09-27 20:37] VITALS: BP 126/51
[2022-09-28 04:39] VITALS: BP 147/61
[2022-09-28] MEDS: DEXAMETHASONE SOD PHOSPHATE 10 MG INJ IV SCH ×3 (05:40→22:06)
[2022-09-28 07:33] VITALS: BP 103/55
[2022-09-28 07:37] LABS: HEMATOCRIT 35.4 % (31.2-41.9); MEAN CORPUSCULAR HEMOGLOBIN 28.9 uug (24.7-32.8); MEAN CORPUSCULAR VOLUME 84.3 fL (75.5-95.3); PLATELET COUNT (AUTO) 365 K/uL (179-408)
[2022-09-28] MEDS: ENSURE ENLIVE (VAN) 240 ML LIQUID PO SCH ×2 (08:10→16:57)
[2022-09-28] MEDS: CALCIUM CARB/VITAMIN D 600-400 MG TABLET PO SCH ×2 (08:12→20:40)
[2022-09-28] MEDS: MORPHINE SULFATE SR 15 MG TABLET.SA PO SCH ×2 (08:12→20:40)
[2022-09-28] MEDS: LIDOCAINE 5% PATCH TD SCH (08:13)
[2022-09-28] MEDS: FLUTICASONE/VILANTEROL 1 EACH BLST.W.DEV IH SCH (08:13)
[2022-09-28] MEDS: AMLODIPINE 5 MG TABLET PO SCH ×2 (08:13→20:41)
[2022-09-28] MEDS: CALCITONIN,SALMON,SYNTHETIC 3.7 ML SPRAY.PUMP NS SCH (08:13)
[2022-09-28 08:37] LABS: BILIRUBIN,TOTAL 0.6 mg/dL (0.2-1.0); CREATININE 1.2 mg/dL (0.6-1.3); MAGNESIUM 2.3 mg/dL (1.8-2.4); PHOSPHOROUS 3.8 mg/dL (2.5-4.9); POTASSIUM 5.5 mmol/L (3.5-5.1); TOTAL PROTEIN, SERUM 5.9 g/dL (6.4-8.2)
[2022-09-28] MEDS: REMEDY ESSENTIAL ZINC PASTE 113 GM TOP SCH ×2 (09:13→20:41)
[2022-09-28 09:29] LABS: URIC ACID 5.6 mg/dL (2.6-6.0)
[2022-09-28 10:06] LABS: THYROID STIMULATING HORMONE 0.163 mIU/mL (0.358-3.740)
[2022-09-28 11:37] LABS: *BILIRUBIN,URIN NEGATIVE (NEGATIVE); *BLOOD, URINE NEGATIVE (NEGATIVE); *CLARITY,URINE CLEAR (CLEAR); *COLOR,URINE YELLOW (YELLOW); *KETONES,URINE NEGATIVE (NEGATIVE); *UROBILINOGEN,URINE 0.2 E.U./dl (NORMAL); LEUKOCYTE ESTERASE ,URINE NEGATIVE (NEGATIVE); NITRITE, URINE NEGATIVE (NEGATIVE); PH,URINE 5.5 (5.0-8.0); UGLUCOSE NEGATIVE (NEGATIVE)
[2022-09-28 11:43] LABS: *CREATININE,URINE 29.6 mg/dL (30-125); *URINE TOTAL PROTEIN RANDOM 12.5 mg/dL (<150/24HR)
[2022-09-28] MEDS ORDERED: SUCRALFATE 1 G/10 ML LIQUID UDC PO SCH (12:45)
[2022-09-28] MEDS: SUCRALFATE 1 G TABLET PO SCH ×2 (14:33→20:30)
[2022-09-28 16:23] VITALS: BP 111/52
[2022-09-28] MEDS ORDERED: SUCRALFATE 1 G TABLET PO SCH (16:30)
[2022-09-28] MEDS: PANTOPRAZOLE SODIUM 40 MG TABLET.DR PO SCH (16:56)
--- NOTE | 2022-09-28 20:17 | NUR ---
RECEIVED REPORT FROM ALMA COHN RN. PATIENT IS ALERT & ORIENTED X4, AND ABLE TO SPEAK [place]. VITAL SIGNS STABLE. PATIENT TOLERATES PO & IV MEDICATIONS AND DIET. PATIENT VOIDS ADEQUATELY & HAD TWO BOWEL MOVEMENTS. PARTICIPATES WITH PHYSICAL AND OCCUPATIONAL THERAPY SCHEDULED. PATIENT HAD COMPLAINT OF PAIN. RN MANAGED PAIN WITH MEDICATIONS ORDERED BY MD. NO ACUTE DISTRESS NOTED. FALL PRECAUTIONS IN PLACE. ALL NEEDS MET AT THIS TIME. ENDORSED CARE TO ALMA COHN RN, FOR CONTINUATION OF CARE.
[2022-09-29] MEDS: DEXAMETHASONE SOD PHOSPHATE 10 MG INJ IV SCH ×3 (05:42→21:14)
[2022-09-29 06:13] VITALS: BP 105/60
[2022-09-29] MEDS: PANTOPRAZOLE SODIUM 40 MG TABLET.DR PO SCH ×2 (06:31→17:16)
[2022-09-29] MEDS: SUCRALFATE 1 G TABLET PO SCH ×4 (06:32→21:13)
[2022-09-29 07:25] LABS: CARBON DIOXIDE 30 mmol/L (21-32); CHLORIDE 95 mmol/L (98-107); CREATININE 1.4 mg/dL (0.6-1.3); GLUCOSE 112 mg/dL (74-106); MAGNESIUM 2.4 mg/dL (1.8-2.4); PHOSPHOROUS 4.3 mg/dL (2.5-4.9); POTASSIUM 5.5 mmol/L (3.5-5.1); UREA NITROGEN, BLOOD 59 mg/dL (7-18)
[2022-09-29 07:28] LABS: HEMATOCRIT 38.3 % (31.2-41.9); MEAN CORPUSCULAR HEMOGLOBIN 28.6 uug (24.7-32.8); MEAN CORPUSCULAR VOLUME 85.6 fL (75.5-95.3); PLATELET COUNT (AUTO) 369 K/uL (179-408)
[2022-09-29 07:57] VITALS: BP 139/53
[2022-09-29] MEDS: ENSURE ENLIVE (VAN) 240 ML LIQUID PO SCH (08:39)
[2022-09-29] MEDS: AMLODIPINE 5 MG TABLET PO SCH ×2 (08:50→21:13)
[2022-09-29] MEDS: CALCIUM CARB/VITAMIN D 600-400 MG TABLET PO SCH ×2 (08:50→21:13)
[2022-09-29] MEDS: FLUTICASONE/VILANTEROL 1 EACH BLST.W.DEV IH SCH (08:51)
[2022-09-29] MEDS: CALCITONIN,SALMON,SYNTHETIC 3.7 ML SPRAY.PUMP NS SCH (08:51)
[2022-09-29] MEDS: MORPHINE SULFATE SR 15 MG TABLET.SA PO SCH ×2 (08:54→21:13)
[2022-09-29] MEDS: LIDOCAINE 5% PATCH TD SCH (08:55)
[2022-09-29] MEDS: REMEDY ESSENTIAL ZINC PASTE 113 GM TOP SCH ×2 (09:16→21:14)
--- NOTE | 2022-09-29 11:00 | NUR ---
0730-REC'D PATIENT IN BED, ASLEEP, NO PHYSICAL OR RESPIRATORY DISTRESS OBSERVED. PATIENT ABLE TO WAKE UP ON VERBAL/TACTILE COMMANDS, DENIES PAIN. OFFERED ORAL FLUIDS AND TAKEN WELL. SAFETY MEASURES IN PLACE/CALL LIGHT WITHIN REACH. 0900-SCHEDULED MEDICATION ADMINISTERED ORDERED.
[2022-09-29 16:15] VITALS: BP 152/61
--- NOTE | 2022-09-29 19:37 | NUR ---
NO JB NOTED FROM BASELINE, ALL NEEDS ANTICIPATED AND MET.
[2022-09-29 20:00] VITALS: BP 127/59
[2022-09-30] MEDS: DEXAMETHASONE SOD PHOSPHATE 10 MG INJ IV SCH ×3 (05:17→23:06)
[2022-09-30] MEDS: PANTOPRAZOLE SODIUM 40 MG TABLET.DR PO SCH ×2 (06:00→17:12)
[2022-09-30 06:01] VITALS: BP 118/56
[2022-09-30] MEDS: SUCRALFATE 1 G TABLET PO SCH ×4 (06:01→20:54)
[2022-09-30 07:11] LABS: HEMATOCRIT 35.9 % (31.2-41.9); MEAN CORPUSCULAR HEMOGLOBIN 28.3 uug (24.7-32.8); MEAN CORPUSCULAR VOLUME 85.2 fL (75.5-95.3); PLATELET COUNT (AUTO) 350 K/uL (179-408)
[2022-09-30 07:48] VITALS: BP 156/62
[2022-09-30 07:53] LABS: CREATININE 1.2 mg/dL (0.6-1.3); MAGNESIUM 2.4 mg/dL (1.8-2.4); PHOSPHOROUS 4.4 mg/dL (2.5-4.9); POTASSIUM 5.2 mmol/L (3.5-5.1)
[2022-09-30 08:06] LABS: THYROID STIMULATING HORMONE 0.14 mIU/mL (0.358-3.740)
[2022-09-30] MEDS: CALCIUM CARB/VITAMIN D 600-400 MG TABLET PO SCH ×2 (08:53→20:54)
[2022-09-30] MEDS: MORPHINE SULFATE SR 15 MG TABLET.SA PO SCH ×2 (08:53→20:55)
[2022-09-30] MEDS: AMLODIPINE 5 MG TABLET PO SCH ×2 (08:54→20:54)
[2022-09-30] MEDS: CALCITONIN,SALMON,SYNTHETIC 3.7 ML SPRAY.PUMP NS SCH (08:55)
[2022-09-30] MEDS: FLUTICASONE/VILANTEROL 1 EACH BLST.W.DEV IH SCH (08:56)
[2022-09-30] MEDS: ENSURE ENLIVE (VAN) 240 ML LIQUID PO SCH (08:56)
[2022-09-30] MEDS: LIDOCAINE 5% PATCH TD SCH (08:56)
[2022-09-30] MEDS: REMEDY ESSENTIAL ZINC PASTE 113 GM TOP SCH ×2 (08:57→20:55)
--- NOTE | 2022-09-30 15:19 | NUR ---
INDIVIDUALIZED PLAN OF CARE
--- NOTE | 2022-09-30 15:20 | NUR ---
INTERDISCIPLINARY TEAM CONFERENCE
[2022-09-30 16:47] VITALS: BP 126/56
--- NOTE | 2022-09-30 18:01 | NUR ---
shift note; pt aox4; no acute distress noted; no pain complain; pt tolerated pt well; pt will be discharge guillermina per cm; vitals wnl; call light within reach; bed locked; pt needs met; will endorsed to noc shift.
[2022-09-30 20:00] VITALS: BP 134/55
[2022-09-30] MEDS ORDERED: ATORVASTATIN 10 MG TABLET PO SCH (21:00)
[2022-10-01 04:00] VITALS: BP 119/57
[2022-10-01] MEDS: DEXAMETHASONE SOD PHOSPHATE 10 MG INJ IV SCH ×2 (05:29→14:20)
[2022-10-01] MEDS: SUCRALFATE 1 G TABLET PO SCH ×2 (06:08→11:34)
[2022-10-01] MEDS: PANTOPRAZOLE SODIUM 40 MG TABLET.DR PO SCH (06:08)
[2022-10-01 08:00] VITALS: BP 126/49
[2022-10-01 08:43] VITALS: BP 119/57
[2022-10-01] MEDS: FLUTICASONE/VILANTEROL 1 EACH BLST.W.DEV IH SCH (08:43)
[2022-10-01] MEDS: CALCITONIN,SALMON,SYNTHETIC 3.7 ML SPRAY.PUMP NS SCH (08:43)
[2022-10-01] MEDS: MORPHINE SULFATE SR 15 MG TABLET.SA PO SCH (08:43)
[2022-10-01] MEDS: AMLODIPINE 5 MG TABLET PO SCH (08:43)
[2022-10-01] MEDS: CALCIUM CARB/VITAMIN D 600-400 MG TABLET PO SCH (08:43)
[2022-10-01] MEDS: LIDOCAINE 5% PATCH TD SCH (08:44)
[2022-10-01] MEDS: REMEDY ESSENTIAL ZINC PASTE 113 GM TOP SCH (08:44)
[2022-10-01] MEDS: ENSURE ENLIVE (VAN) 240 ML LIQUID PO SCH (09:27)
--- NOTE | 2022-10-01 10:57 | NUR ---
0730-REC'D PATIENT IN BED, NO ACUTE RESPIRATORY DISTRESS/SOB, DENIES PAIN. REPOSITIONED FOR COMFORT, PROVIDED WITH WARM BLANKETS, OFFERED ORAL FLUIDS AND TAKEN WELL. SAFETY MEASURES IN PLACE AND CALL LIGHT AT REACH. 0900-SCHEDULED MEDICATION ADMINISTERED WITH NO ASE NOTED; ORAL FLUIDS TAKEN WELL, PATIENT CONTINUES EATING HER BREAKFAST, NO C/O GI DISCOMFORT. 0930-PATIENT OOB AMBULATING IN HALLWAY USING FWW AND A REHAB PERSON, PATIENT ACTIVELY PARTICIPATING IN HER THERAPY, TOLERATING IT WELL. 1000-ASSISTED PATIENT TO THE RESTROOM AND HAD A MEDIUM SOFT BM, GOOD PERINEAL CARE PROVIDED, NO C/O ANY DISCOMFORT. 1040-ASSISTED TO USE RESTROOM AND HAD A LARGE SOFT BM. ASSISTED BACK TO HER BED, PATIENT COMPLAINED OF ABD PAIN AND ASSIST BACK TO RESTROOM, ENCOURAGED PATIENT TO RELAX AND TRY TO EXPEL SOME GAS, ALLOW SEVERAL MINUTES, PATIENT HAD SMALL SOFT BM AGAIN. PATIENT STATED TO FEEL BETTER AFTER, ASSISTED BACK TO BED, AND PROVIDED REASSURANCE WITH HELP.
--- NOTE | 2022-10-01 14:58 | NUR ---
2:45pm-PATIENT WAS DISCHARGED HOME SAFELY. ALL PAPERWORK/PHYSICIAN'S ORDERS/HARD COPIES PROVIDED; PATIENT WAS PICKED UP BY EVANS BALDWIN/SON (TWO MALE SONS). PATIENT LEFT IN GOOD STABLE CONDITIONS. NO PHYSICAL OR RESPIRATORY DISTRESS NOTED, VSS. PERSONAL BELONGINGS TAKEN AND LIST/INVENTORY LIST SIGNED.
== END 2022-10-01 14:50 | disposition home health service (06) | DRG 551 ==
PROVIDERS: ADMIT Physical Medicine & Rehabilitation Pain Medicine; ATTEND Physical Medicine & Rehabilitation Pain Medicine
DX: M54.42 Lumbago with sciatica, left side (principal); N17.0 Acute kidney failure with tubular necrosis; D68.59 Other primary thrombophilia; E44.0 Moderate protein-calorie malnutrition; E87.1 Hypo-osmolality and hyponatremia; E87.20 Acidosis, unspecified; R53.1 Weakness; Z74.09 Other reduced mobility; E78.5 Hyperlipidemia, unspecified; E86.0 Dehydration; E87.5 Hyperkalemia; H54.7 Unspecified visual loss; M48.54XD Collapsed vertebra, not elsewhere classified, thoracic region, subsequent encounter for fracture with routine healing; G89.29 Other chronic pain; I25.10 Atherosclerotic heart disease of native coronary artery without angina pectoris; I27.20 Pulmonary hypertension, unspecified; I70.0 Atherosclerosis of aorta; K29.60 Other gastritis without bleeding; R91.8 Other nonspecific abnormal finding of lung field; R53.81 Other malaise; M19.90 Unspecified osteoarthritis, unspecified site; I12.9 Hypertensive chronic kidney disease with stage 1 through stage 4 chronic kidney disease, or unspecified chronic kidney disease; N18.9 Chronic kidney disease, unspecified; K83.8 Other specified diseases of biliary tract; M41.9 Scoliosis, unspecified; M81.0 Age-related osteoporosis without current pathological fracture; M89.8X9 Other specified disorders of bone, unspecified site; Z91.81 History of falling; Z88.0 Allergy status to penicillin; Z87.891 Personal history of nicotine dependence
CPT/HCPCS: 36415; 83550; 83735; 83935; 84100; 84133; 84156; 84300; 84443; 84550; 85025; 97535-GO-CO; J1100; J1885

== ENCOUNTER 2023-01-03 12:59 | Emergency (ER) | payer MEDICARE, MEDICAID ==
[~2023-01-03] VITALS: Ht 147.3 cm; Wt 54.0 kg
[2023-01-03] MEDS ORDERED: ALBUTEROL SULFATE 2.5 MG/3 ML NEBU ONE (13:26)
[2023-01-03] MEDS ORDERED: IPRATROPIUM BROMIDE 0.5 MG/2.5 ML NEBU ONE (13:26)
[2023-01-03] MEDS ORDERED: IPRATROPIUM BROMIDE 0.5 MG/2.5 ML NEBU NEB ONE (13:30)
[2023-01-03] MEDS ORDERED: ALBUTEROL SULFATE 2.5 MG/3 ML NEBU NEB ONE (13:30)
[2023-01-03 14:20] VITALS: BP 133/81
--- NOTE | 2023-01-03 14:24 | NUR ---
Patient discharged to home by Dr Daniel in stable condition with slow steady gait using her own walker. Written and verbal after care instructions given to patient's adult sons. Patient and family verbalized understanding and compliance of instructions. Stressed follow up with primary doctor and sales store checker or return to ER for worsening s/s.
== END 2023-01-03 14:24 | disposition home or self-care (01) ==
LOC: ER 13:11
DX: J44.1 Chronic obstructive pulmonary disease with (acute) exacerbation (principal); R07.89 Other chest pain; I10 Essential (primary) hypertension; I25.10 Atherosclerotic heart disease of native coronary artery without angina pectoris; E78.5 Hyperlipidemia, unspecified; F17.210 Nicotine dependence, cigarettes, uncomplicated; Z88.0 Allergy status to penicillin; Z79.899 Other long term (current) drug therapy
CPT/HCPCS: 71045; A4663; J3590

== ENCOUNTER 2023-03-30 09:51 | Emergency (ER) | payer MEDICARE, OTHER ==
[~2023-03-30] VITALS: Ht 147.3 cm; Wt 52.2 kg
--- NOTE | 2023-03-30 10:06 | NUR ---
BIB family member for c/o left knee pain, informed of plan of care at this time. ER provider at bedside for exam, will continue to monitor.
[2023-03-30] MEDS ORDERED: KETOROLAC TROMETHAMINE 15 MG INJ IVP ONE (10:15)
--- NOTE | 2023-03-30 10:24 | NUR ---
#20g established in left ac, blood collected and sent to lab. Radiology at bedside.
[2023-03-30] MEDS ORDERED: KETOROLAC TROMETHAMINE 15 MG INJ ONE (10:26)
[2023-03-30 10:30] LABS: HEMATOCRIT 36.3 % (31.2-41.9); MEAN CORPUSCULAR HEMOGLOBIN 28.6 uug (24.7-32.8); MEAN CORPUSCULAR VOLUME 87.6 fL (75.5-95.3); PLATELET COUNT (AUTO) 260 K/uL (179-408)
[2023-03-30 10:35] LABS: CARBON DIOXIDE 30 mmol/L (21-32); CHLORIDE 103 mmol/L (98-107); CREATININE 1.1 mg/dL (0.6-1.3); POTASSIUM 4.1 mmol/L (3.5-5.1); UREA NITROGEN, BLOOD 24 mg/dL (7-18)
--- NOTE | 2023-03-30 10:54 | NUR ---
Patient resting at this time, family remains at bedside.
--- NOTE | 2023-03-30 10:55 | NUR ---
permit technician at bedside.
--- NOTE | 2023-03-30 11:04 | NUR ---
Off unit to CT via rney.
--- NOTE | 2023-03-30 11:35 | NUR ---
Patient has returned from CT, awaiting MD review.
--- NOTE | 2023-03-30 12:07 | NUR ---
Left knee chavo wrap applied as per order.
[2023-03-30] MEDS ORDERED: HYDROCODONE/APAP 5-325MG TABLET PO ONE (12:15)
--- NOTE | 2023-03-30 12:28 | NUR ---
HL REMOVED, ACI GIVEN REMAINS STABLE FOR DISCHARGE HOME WITH FAMILY.
[2023-03-30 12:29] VITALS: BP 150/63; O2SAT 94
== END 2023-03-30 12:30 | disposition home or self-care (01) ==
LOC: ER 09:51
DX: M25.562 Pain in left knee (principal); M25.862 Other specified joint disorders, left knee; I10 Essential (primary) hypertension; E78.5 Hyperlipidemia, unspecified; J44.9 Chronic obstructive pulmonary disease, unspecified; F17.210 Nicotine dependence, cigarettes, uncomplicated; Z88.0 Allergy status to penicillin; Z79.899 Other long term (current) drug therapy
CPT/HCPCS: 99285; 96374; 73700; 93971; 80048; 85025; 85651; 36415; 73564; J1885; A4663

== ENCOUNTER 2023-09-21 09:51 | Emergency (ER) | payer MEDICARE, OTHER ==
[~2023-09-21] VITALS: Ht 160 cm; Wt 47.6 kg
[2023-09-21] MEDS ORDERED: ALBUTEROL SULFATE 2.5 MG/3 ML NEBU NEB ONE (10:30)
[2023-09-21] MEDS ORDERED: IPRATROPIUM BROMIDE 0.5 MG/2.5 ML NEBU NEB ONE (10:30)
[2023-09-21] MEDS ORDERED: predniSONE 10 MG TABLET PO ONE (10:30)
[2023-09-21] MEDS ORDERED: predniSONE 20 MG TABLET ONE (10:34)
[2023-09-21 10:48] LABS: CARBON DIOXIDE 30 mmol/L (21-32); CHLORIDE 105 mmol/L (98-107); CREATININE 1.1 mg/dL (0.6-1.3); GLUCOSE 98 mg/dL (74-106); POTASSIUM 4.2 mmol/L (3.5-5.1); SODIUM SERUM 141 mmol/L (136-145); UREA NITROGEN, BLOOD 26 mg/dL (7-18)
[2023-09-21] MEDS ORDERED: ALBU18HF2 INH (10:48)
[2023-09-21] MEDS ORDERED: BENZ-13 PO (10:48)
[2023-09-21] MEDS ORDERED: PRED20TA PO (10:48)
[2023-09-21 11:01] LABS: ALANINE AMINOTRANSFERASE 16 U/L (14-59); ALBUMIN 3.3 g/dL (3.4-5.0); ALKALINE PHOSPHATASE 101 U/L (50-136); ASPARTATE AMINOTRANSFERASE 11 U/L (15-37); BILIRUBIN,DIRECT 0.1 mg/dL (0.0-0.2); BILIRUBIN,TOTAL 0.6 mg/dL (0.2-1.0); NT-PRO BNP 728 pg/mL (0-125); TOTAL PROTEIN, SERUM 6.8 g/dL (6.4-8.2)
[2023-09-21 11:13] LABS: BASOPHILS % (AUTO) 0.7 % (0.0-2.0); DIFFERENTIAL COMMENT 0; EOSINOPHILS # (AUTO) 0.2 K/uL (0.0-0.7); EOSINOPHILS % (AUTO) 3.4 % (0.0-7.0); HEMATOCRIT 33.2 % (31.2-41.9); HEMOGLOBIN 10.9 g/dL (10.9-14.3); LYMPHOCYTES # (AUTO) 2.2 K/uL (0.8-4.8); LYMPHOCYTES % (AUTO) 31.6 % (20.5-51.5); MEAN CORPUSCULAR HGB CONC 33 g/dL (32.3-35.6); MEAN CORPUSCULAR VOLUME 88.1 fL (75.5-95.3); MONOCYTES # (AUTO) 0.7 K/uL (0.1-1.30); NEUTROPHILS # (AUTO) 3.8 K/uL (1.8-8.9); NEUTROPHILS % (AUTO) 54.3 % (38.5-71.5); PLATELET COUNT (AUTO) 240 K/uL (179-408); RED BLOOD CELL COUNT(AUTO) 3.77 MIL/uL (3.63-4.92); RED CELL DISTRIBUTION WIDTH 14.6 % (12.3-17.7)
[2023-09-21] MEDS ORDERED: ALBUTEROL SULFATE 2.5 MG/3 ML NEBU ONE (11:29)
[2023-09-21] MEDS ORDERED: IPRATROPIUM BROMIDE 0.5 MG/2.5 ML NEBU ONE (11:29)
[2023-09-21 11:30] VITALS: O2SAT 97
[2023-09-21 12:00] VITALS: O2SAT 99
[2023-09-21 12:49] VITALS: BP 136/65; O2SAT 97
== END 2023-09-21 12:50 | disposition home or self-care (01) ==
LOC: ER 09:51
DX: J06.9 Acute upper respiratory infection, unspecified (principal); R05.9 Cough, unspecified; R09.81 Nasal congestion; I10 Essential (primary) hypertension; E78.5 Hyperlipidemia, unspecified; J44.9 Chronic obstructive pulmonary disease, unspecified; F17.200 Nicotine dependence, unspecified, uncomplicated; Z79.899 Other long term (current) drug therapy; Z20.822 Contact with and (suspected) exposure to COVID-19; Z88.0 Allergy status to penicillin
CPT/HCPCS: 99285; 71045; 87426; 87804 ×2; 80076; 80048; 83880; 85025; 84484; 36415; 93005; 94640; 87420; J7512; A4606; A4663; J3590

== ENCOUNTER 2024-11-10 10:52 | Emergency (ER) | payer OTHER ==
[~2024-11-10] VITALS: Ht 165.1 cm; Wt 50.8 kg
[~2024-11-10 10:52] MED LIST changes: +ALBU18HF2 INH; +BENZ-13 PO; +PRED20TA PO
[2024-11-10 11:30] LABS: BASOPHILS % (AUTO) 0.4 % (0.0-2.0); EOSINOPHILS % (AUTO) 0.3 % (0.0-7.0); HEMATOCRIT 36.5 % (31.2-41.9); HEMOGLOBIN 12.2 g/dL (10.9-14.3); LYMPHOCYTES # (AUTO) 1.3 K/uL (0.8-4.8); LYMPHOCYTES % (AUTO) 29.3 % (20.5-51.5); MEAN CORPUSCULAR HGB CONC 33 g/dL (32.3-35.6); MONOCYTES # (AUTO) 0.4 K/uL (0.1-1.30); MONOCYTES % (AUTO) 8.6 % (0.0-11.0); NEUTROPHILS # (AUTO) 2.7 K/uL (1.8-8.9); NEUTROPHILS % (AUTO) 61.4 % (38.5-71.5); PLATELET COUNT (AUTO) 205 K/uL (179-408); RED CELL DISTRIBUTION WIDTH 15.4 % (12.3-17.7); WHITE BLOOD COUNT (AUTO) 4.5 K/uL (3.8-11.8)
[2024-11-10 11:35] LABS: DIFFERENTIAL COMMENT 1
[2024-11-10 11:37] LABS: CALCIUM 8.8 mg/dL (8.5-10.1); CARBON DIOXIDE 26 mmol/L (21-32); CHLORIDE 103 mmol/L (98-107); CREATININE 1.5 mg/dL (0.6-1.3); GLUCOSE 98 mg/dL (74-106); POTASSIUM 4.1 mmol/L (3.5-5.1); SODIUM SERUM 140 mmol/L (136-145); UREA NITROGEN, BLOOD 20 mg/dL (7-18)
[2024-11-10 11:51] LABS: ALANINE AMINOTRANSFERASE 13 U/L (14-59); ALBUMIN 3.1 g/dL (3.4-5.0); ALKALINE PHOSPHATASE 99 U/L (50-136); ASPARTATE AMINOTRANSFERASE 22 U/L (15-37); BILIRUBIN,DIRECT 0.2 mg/dL (0.0-0.2); BILIRUBIN,TOTAL 0.4 mg/dL (0.2-1.0); NT-PRO BNP 981 pg/mL (0-125); TOTAL PROTEIN, SERUM 6.6 g/dL (6.4-8.2)
[2024-11-10] MEDS ORDERED: CODE10LI PO (12:54)
[2024-11-10] MEDS ORDERED: FLUT1BLS15 INH (12:54)
[2024-11-10 13:22] VITALS: BP 154/85; TEMP 98.5; O2SAT 95
== END 2024-11-10 13:23 | disposition home or self-care (01) ==
LOC: ER 10:52
DX: J06.9 Acute upper respiratory infection, unspecified (principal); E78.5 Hyperlipidemia, unspecified; F17.200 Nicotine dependence, unspecified, uncomplicated; I11.9 Hypertensive heart disease without heart failure; I25.10 Atherosclerotic heart disease of native coronary artery without angina pectoris; J44.89 Other specified chronic obstructive pulmonary disease; Z79.51 Long term (current) use of inhaled steroids; Z79.52 Long term (current) use of systemic steroids; Z20.822 Contact with and (suspected) exposure to COVID-19; Z88.0 Allergy status to penicillin; Z88.7 Allergy status to serum and vaccine
CPT/HCPCS: 36415; 71045; 83605; 85025; 87040; A4606; A4663